=== PATIENT | male | born 1930 | race Caucasian/White ===

== ENCOUNTER 2020-05-03 10:05 | Inpatient (IN) | payer MEDICARE, OTHER ==
[~2020-05-03] VITALS: Ht 172 cm; Wt 110.3 kg
[~2020-05-03 10:05] MED LIST: ACET500L36 PO; ALLP100T PO; AMLO10TA82 PO; DPAS20025 PO; FOLI0.4T2 PO; HCTZ12.5T PO; LOSA100T16 PO; LOVA10TA PO; OMEP-10 PO; PANAX GINSENG PO; SENN1TAB76 PO; TMSL.4C PO; UBID100C17 PO; [UNRECOGNIZED DRUG - REMARK]; [UNRECOGNIZED DRUG - REMARK]
--- NOTE | 2020-05-03 10:45 | NUR ---
WHEN PT IS AWAKE PULSE OX 91-94%. WHEN PT FALLS ASLEEP STAT DROPS TO 88-89% ON ROOM AIR. Addendum: 05/03/20 at 1046 by JACINTO PT DENIES SOA OR KNOWN SLEEP APNEA.
--- NOTE | 2020-05-03 10:57 | NUR ---
PT PULSE OX CONTINUES TO WANT TO DROP TO 88-89% ON OXYGEN. PT DENIES DIZZINESS. ASKED TECH TO GET A EKG .
--- NOTE | 2020-05-03 11:00 | NUR ---
DR WEBBER IN THE ROOM. Addendum: 05/03/20 at 1108 by NSNYDER PT DENIES CHEST PAIN.
[2020-05-03 11:15] LABS: BASOPHILS % (AUTO) 0 % (0-10); EOSINOPHILS % (AUTO) 0 % (0-10); HEMATOCRIT 32 % (40-54); HEMOGLOBIN 10.3 g/dL (13.3-17.7); LYMPHOCYTES # (AUTO) 0.3 10^3/uL (1.0-4.0); LYMPHOCYTES % (AUTO) 6 % (12-44); MEAN CORPUSCULAR HEMOGLOBIN 30 pg (25-34); MEAN CORPUSCULAR HGB CONC 32 g/dL (32-36); MEAN CORPUSCULAR VOLUME 93 fL (80-99); MEAN PLATELET VOLUME 9.2 fL (9.0-12.2); MONOCYTES # (AUTO) 0.6 10^3/uL (0.0-1.0); MONOCYTES % (AUTO) 11 % (0-12); NEUTROPHILS # (AUTO) 4.7 10^3/uL (1.8-7.8); NEUTROPHILS % (AUTO) 82 % (42-75); PLATELET COUNT 200 10^3/uL (130-400); WHITE BLOOD COUNT 5.7 10^3/uL (4.3-11.0)
[2020-05-03 11:19] LABS: ALBUMIN 3.5 GM/DL (3.2-4.5); POTASSIUM 3.8 MMOL/L (3.6-5.0)
[2020-05-03 11:21] LABS: CALCIUM 9.8 MG/DL (8.5-10.1); INR 1.1 (0.8-1.4); PROTHROMBIN TIME PATIENT 14.8 SEC (12.2-14.7)
[2020-05-03 11:22] LABS: TOTAL PROTEIN 6.6 GM/DL (6.4-8.2)
[2020-05-03 11:24] LABS: BILIRUBIN,TOTAL 0.4 MG/DL (0.1-1.0)
[2020-05-03 11:25] LABS: CREATININE SERUM 1.95 MG/DL (0.60-1.30)
--- NOTE | 2020-05-03 11:26 | NUR ---
DR WEBBER CALLED AND TALKED WITH THE PT'S FAMILY.
--- NOTE | 2020-05-03 11:35 | Diagnostic Imaging Report ---
INDICATION: Fall from standing, dizziness, now vomiting. COMPARISON: Chest radiograph compared 10/28/2008 FINDINGS: There is air trapping as a chronic finding noted. Some prominence of the interstitial lung markings, mildly increased in the interim, but this may be on a chronic basis. Some prominence of the central pulmonary vascularity appears similar to the prior. Heart size stable. No pneumothorax. No displaced chest wall fracture deformity. An element of mild volume overload and central venous congestion could not be excluded. IMPRESSION: Findings raise the question of mild central vascular congestion with chronic mild air trapping and likely chronic mild interstitial changes. No acute appearing abnormality. An acute posttraumatic sequelae is not identified. No evidence for pneumonia. Dictated by: Dictated on workstation # [id number]
[2020-05-03 11:41] LABS: BAND NEUTROPHILS 2 %; BASOPHILS % (MANUAL) 0 %; EOSINOPHILS % (MANUAL) 0 %; LYMPHOCYTES % (MANUAL) 6 %; MONOCYTES % (MANUAL) 5 %; NEUTROPHILS % (MANUAL) 87 %
[2020-05-03 11:42] LABS: ELLIPT/OVALOCYTES SLIGHT
--- NOTE | 2020-05-03 12:23 | NUR ---
DR IN ROOM WITH PT AT THIS TIME.
--- NOTE | 2020-05-03 12:25 | ED General ---
General Chief Complaint: Trauma-Non Activation Stated Complaint: FALL Nursing Triage Note: ARRIVED VIA EMS FROM HOME. PT USES A WALKER DUE TO A PREVIOUS STROKE. WAS SHAVING AND TURNED AROUND AND FELL. DENIES HITTING HIS HEAD ET DENIES PAIN. STATES WHEN HIS FAMILY TRIED TO GET HIM UP HE BECAME DIZZY AND VOMITED. PT STATES HE IS ALWAYS DIZZY AND IS NO MORE DIZZY THEN USUAL. A/0 X3. Nursing Sepsis Screen: No Definite Risk Source of Information: Patient Exam Limitations: No Limitations History of Present Illness Date Seen by Provider: May 03, 2020 Time Seen by Provider: 10:59 Initial Comments Here by EMS with report of fall while shaving. Apparently he had turned and fell. Patient denies hitting his head but family states that the way he fell he would likely have hit his head. Patient did not want to come. 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 [facility]s with the [facility]. Apparently after the fall, his family was trying to help him up when he became dizzy and vomited. Patient states that he is always dizzy and this is not different. Denies chest pain or breathing problems. Does note swelling in his legs that is typical and longstanding. Patient does sleep in a recliner. Timing/Duration: 1 Hour Severity: Mild Associated Systoms: No Chest Pain, No Cough, No Fever/Chills, No Headaches; Nausea/Vomiting; No Shortness of Air; Weakness Allergies and Home Medications Allergies Coded Allergies: No Known Drug Allergies (Unverified , 05/02/10) Home Medications Acetaminophen 500 Mg/5 Ml Liquid, 1,000 MG PO HS PRN, (Reported) Allopurinol 100 Mg Tab, 100 MG PO DAILY, (Reported) Amlodipine Besylate 10 Mg Tablet, 1 EACH PO DAILY, (Reported) Dipyridamole/Aspirin 1 Ea Cap, 1 EA PO BID, (Reported) Folic Acid 0.4 Mg Tablet, 1 EACH PO DAILY, (Reported) Hydrochlorothiazide 12.5 Mg Cap, 12.5 MG PO DAILY, (Reported) Losartan Potassium 100 Mg Tablet, 1 EACH PO DAILY, (Reported) Lovastatin 10 Mg Tablet, 1 EACH PO DAILY WITH SUPPER, (Reported) Omeprazole 20 Mg Capsule.dr, 20 MG PO DAILY, (Reported) Senna 1 Ea Tablet, 1 EA PO BID, (Reported) Tamsulosin Hcl 0.4 Mg Cap, 0.4 MG PO DAILY, (Reported) Ubidecarenone 100 Mg Capsule, 100 MG PO DAILY, (Reported) [Panax Ginseng] , 600 MG PO DAILY, (Reported) Patient Home Medication List Home Medication List Reviewed: Yes Review of Systems Review of Systems Constitutional: see HPI; No chills, No fever EENTM: no symptoms reported Respiratory: No cough, No short of breath Cardiovascular: No chest pain; edema Gastrointestinal: No abdominal pain; nausea, vomiting Musculoskeletal: No back pain, No joint pain Skin: No change in color, No dryness Psychiatric/Neurological: Denies Headache; Weakness, Other (Dizziness) All Other Systems Reviewed Negative Unless Noted: Yes Past [place] Hx Past Med/Social Hx: Reviewed Nursing Past Med/Soc Hx Patient Social History Alcohol Use: Denies Use Recreational Drug Use: No Recent Foreign Travel: No Contact w/Someone Who Travel: No Recent Infectious Disease Expo: No Recent Hopitalizations: Yes Past Medical History Surgeries: Yes (ONE KNEE REPLACED 1998 & THE OTHER KNEE IN 2001) Respiratory: No Cardiac: Yes Neurological: Yes Reproductive Disorders: No Sexually Transmitted Disease: No Gastrointestinal: No Musculoskeletal: Yes Endocrine: No Psychosocial: No Blood Disorders: No Family Medical History Reviewed Nursing Family Hx Physical Exam Vital Signs Vital Signs - First Documented 05/03/20 10:05 Temp 37.2 Pulse 61 Resp 16 B/P (MAP) 169/66 (100) Pulse Ox 93 O2 Delivery Room Air Capillary Refill : Less Than 3 Seconds Height, Weight, BMI Height: '" Weight: lbs. oz. kg; 35.00 BMI Method:Stated General Appearance: No Apparent Distress, WD/WN HEENT: PERRL/EOMI, TMs Normal, Pharynx Normal Neck: Full Range of Motion, Normal Inspection, Non Tender, Supple; No Tender Lateral, No Tender Midline Respiratory: Lungs Clear, Normal Breath Sounds Cardiovascular: Regular Rate, Rhythm, No Murmur Gastrointestinal: Non Tender, Soft Back: Normal Inspection, No CVA Tenderness, No Vertebral Tenderness Extremity: Pedal Edema (3+ bilateral lower extremity to the level of knees), Pelvis Stable Neurologic/Psychiatric: Alert, Oriented x3, Normal Mood/Affect Progress/Results/Core Measures Suspected Sepsis Recent Fever Within 48 Hours: No Infection Criteria Present: None New/Unexplained Altered Menta: No Sepsis Screen: No Definite Risk SIRS Temperature: Pulse: 61 Respiratory Rate: 16 Laboratory Tests 05/03/20 10:50: White Blood Count 5.7 Blood Pressure 169 /66 Mean: 100 Laboratory Tests 05/03/20 10:50: Creatinine 1.95H, INR Comment 1.1, Platelet Count 200, Total Bilirubin 0.4 Results/Orders Lab Results Laboratory Tests Test 05/03/20 10:50 05/03/20 10:57 Range/Units White Blood Count 5.7 4.3-11.0 10^3/uL Red Blood Count 3.46 L 4.30-5.52 10^6/uL Hemoglobin 10.3 L 13.3-17.7 g/dL Hematocrit 32 L 40-54 % Mean Corpuscular Volume 93 80-99 fL Mean Corpuscular Hemoglobin 30 25-34 pg Mean Corpuscular Hemoglobin Concent 32 32-36 g/dL Red Cell Distribution Width 13.8 10.0-14.5 % Platelet Count 200 130-400 10^3/uL Mean Platelet Volume 9.2 9.0-12.2 fL Immature Granulocyte % (Auto) 0 % Neutrophils (%) (Auto) 82 H 42-75 % Lymphocytes (%) (Auto) 6 L 12-44 % Monocytes (%) (Auto) 11 0-12 % Eosinophils (%) (Auto) 0 0-10 % Basophils (%) (Auto) 0 0-10 % Neutrophils # (Auto) 4.7 1.8-7.8 10^3/uL Lymphocytes # (Auto) 0.3 L 1.0-4.0 10^3/uL Monocytes # (Auto) 0.6 0.0-1.0 10^3/uL Eosinophils # (Auto) 0.0 0.0-0.3 10^3/uL Basophils # (Auto) 0.0 0.0-0.1 10^3/uL Immature Granulocyte # (Auto) 0.0 0.0-0.1 10^3/uL Neutrophils % (Manual) 87 % Lymphocytes % (Manual) 6 % Monocytes % (Manual) 5 % Eosinophils % (Manual) 0 % Basophils % (Manual) 0 % Band Neutrophils 2 % Elliptocytes SLIGHT Prothrombin Time 14.8 H 12.2-14.7 SEC INR Comment 1.1 0.8-1.4 Activated Partial Thromboplast Time 38 H 24-35 SEC D-Dimer 1.52 H 0.00-0.49 UG/ML Sodium Level 139 135-145 MMOL/L Potassium Level 3.8 3.6-5.0 MMOL/L Chloride Level 110 H 98-107 MMOL/L Carbon Dioxide Level 19 L 21-32 MMOL/L Anion Gap 10 5-14 MMOL/L Blood Urea Nitrogen 30 H 7-18 MG/DL Creatinine 1.95 H 0.60-1.30 MG/DL Estimat Glomerular Filtration Rate 33 BUN/Creatinine Ratio 15 Glucose Level 141 H 70-105 MG/DL Calcium Level 9.8 8.5-10.1 MG/DL Corrected Calcium 10.2 H 8.5-10.1 MG/DL Magnesium Level 2.0 1.6-2.4 MG/DL Total Bilirubin 0.4 0.1-1.0 MG/DL Aspartate Amino Transf (AST/SGOT) 20 5-34 U/L Alanine Aminotransferase (ALT/SGPT) 13 0-55 U/L Alkaline Phosphatase 52 40-136 U/L Myoglobin 1092.1 H 10.0-92.0 NG/ML Troponin I 0.488 *H <0.028 NG/ML B-Type Natriuretic Peptide 236.0 H <100.0 PG/ML Total Protein 6.6 6.4-8.2 GM/DL Albumin 3.5 3.2-4.5 GM/DL Coronavirus 2019 ([facility]) Negative Negative My Orders Orders - JOE WEBBER MD Cbc With Automated Diff (05/03/20 11:03) Magnesium (05/03/20 11:03) Chest 1 View, Ap/Pa Only (05/03/20 11:03) Ekg Tracing (05/03/20 11:03) Comprehensive Metabolic Panel (05/03/20 11:03) Myoglobin Serum (05/03/20 11:03) Protime With Inr (05/03/20 11:03) Partial Thromboplastin Time (05/03/20 11:03) O2 (05/03/20 11:03) Monitor-Rhythm Ecg Trace Only (05/03/20 11:03) Lipid Panel (05/04/20 06:00) Ed Iv/Invasive Line Start (05/03/20 11:03) BNP (05/03/20 11:03) Fibrin Degradation Products (05/03/20 11:03) Troponin I (05/03/20 11:03) Echo W Doppler/Color Flow (05/03/20 11:09) Ct Head/Cervical Spine Wo (05/03/20 11:13) Manual Differential (05/03/20 10:50) Covid 19 Inhouse Test (05/03/20 11:54) Enoxaparin Injection (Lovenox Injection) (05/03/20 12:45) Medications Given in ED Current Medications Medications Dose Ordered Sig/David Route Start Time Stop Time Status Last Admin Dose Admin Enoxaparin Sodium 100 mg ONCE ONCE SC 05/03/20 12:45 05/03/20 12:46 DC 05/03/20 12:50 100 MG Vital Signs/I&O 05/03/20 10:05 Temp 37.2 Pulse 61 Resp 16 B/P (MAP) 169/66 (100) Pulse Ox 93 O2 Delivery Room Air Capillary Refill : Less Than 3 Seconds Blood Pressure Mean: 100 Progress Note : Progress Note Seen and evaluated on finding of abnormal EKG. Patient is here with out chest pain and with complaint of fall and dizziness. Noted to be mildly hypoxic in nurse place patient on oxygen. He is not normally on oxygen. This precipitated the EKG. EKG does show abnormal findings and is read as acute IN by machine. On review of the EKG with Dr. Bob at 1106, it is felt that this is likely left bundle branch block variant. Patient reports that he has had some history of left bundle branch block although not noted here previously. This does represent a change from the EKG in 2009 when he had a stroke but he has not had any further work-up here. Given these findings and that he is without chest pain, we will initiate chest pain work-up and evaluate for troponin bump. We will also get CT of the head and C-spine as patient is on Aggrenox and after speaking with patient's daughter, it is very likely that the patient hit his head. 1152: I did review results of troponin and myoglobin with Dr. Bob. Patient is likely a non-STEMI in that he is not having chest pain. He is requesting Lovenox dose now and he will see the patient in the ED likely. Also request Covid 19 rapid test evaluation. 1237: I have discussed the case with Dr. Wilson who will accept the patient for admission to the stepdown unit. We have requested 2D cardiac echo today. CT does not show any acute intracranial findings. Patient is without pain in his neck. Lovenox 100 mg subcu ordered. Patient was informed about possible heart catheterization tomorrow and he is agreeable. COVID-19 evaluation negative. Admit to cardiac stepdown. Patient agrees with plan. ECG Initial ECG Impression Date: May 03, 2020 Initial ECG Impression Time: 10:59 Initial ECG Rate: 58 Comment Sinus rhythm with left bundle branch block. Question of ST elevation in the lateral leads. Extreme right axis deviation. Change from previous in 2009. Reviewed with commercial lines assistant Diagnostic Imaging Diagonstic Imaging: Xray Plain Films/CT/US/NM/MRI: chest Comments [email or web address] [place], [place] NAME: DINESH MARIN [facility] REC#: [id number] PT STATUS: REG ER : 1930 PHYSICIAN: JOE WEBBER MD ADMIT DATE: 05/03/20/ER Draft Date of Exam:05/03/20 CHEST 1 VIEW, AP/PA ONLY INDICATION: Fall from standing, dizziness, now vomiting. COMPARISON: Chest radiograph compared 10/28/2008 FINDINGS: There is air trapping as a chronic finding noted. Some prominence of the interstitial lung markings, mildly increased in the interim, but this may be on a chronic basis. Some prominence of the central pulmonary vascularity appears similar to the prior. Heart size stable. No pneumothorax. No displaced chest wall fracture deformity. An element of mild volume overload and central venous congestion could not be excluded. IMPRESSION: Findings raise the question of mild central vascular congestion with chronic mild air trapping and likely chronic mild interstitial changes. No acute appearing abnormality. An acute posttraumatic sequelae is not identified. No evidence for pneumonia. Dictated on workstation # [id number] Dict: 05/03/20 1117 Trans: 05/03/20 1135 [facility]B [id number] Interpreted by: RAHUL MONTAÑO Electronically signed by: Diagonstic Imaging: CT Plain Films/CT/US/NM/MRI: c-spine, head Comments [facility] [place] [place] NAME: DINESH MARIN [facility] REC#: [id number] PT STATUS: REG ER : 1930 PHYSICIAN: JOE WEBBER MD ADMIT DATE: 05/03/20/ER Draft Date of Exam:05/03/20 CT HEAD/CERVICAL SPINE WO PROCEDURE: CT head and CT cervical spine without contrast, 05/03/2020. TECHNIQUE: Multiple contiguous axial images were obtained through the brain and cervical spine without the use of intravenous contrast. Sagittal and coronal reformations through the cervical spine were then performed. Auto Exposure Controls were utilized during the CT exam to meet ALARA standards for radiation dose reduction. INDICATION: Fall, dizziness, previous stroke. CORRELATION made to CT brain from 05/03/2010 CT HEAD: There is diffuse chronic ischemic disease in a periventricular and deep white matter distribution. Atrophy is also seen. There is no acute hemorrhage or infarct. No mass, mass effect or midline shift appreciated. The calvarium is intact. Chronic change noted within the visualized sinuses. IMPRESSION: 1. No acute intracranial process with chronic findings as above. CT CERVICAL SPINE: There is grade 1 anterolisthesis at C6-C7 and C7-T1. These findings are likely chronic given facet hypertrophy throughout the spine. Clinical exclusion of a ligamentous injury however recommended. No acute fractures are seen. Vertebral body heights are maintained. Multilevel diffuse facet hypertrophy noted with multilevel spur disc complexes also present. Prevertebral soft tissues unremarkable. Visualized lung apices clear. IMPRESSION 1. Multilevel diffuse chronic disease as above with mild subluxation at C6-C7 and C7-T1 most likely on the basis of degenerative disease however clinical exclusion of ligamentous injury recommended. 2. Not mentioned above, there is a prominent hyperdensity along the posterior border at C3-C4 most likely due to a prominent spur disc complex. A tiny epidural hematoma felt to be much less likely but MRI could further characterize and exclude such a process depending on patient's symptoms. Dictated on workstation # [id number] Dict: 05/03/20 1150 Trans: 05/03/20 1225 [facility] [id number] Interpreted by: NAHID ENGLISH MD Electronically signed by: Departure Communication (Admissions) Time/Spoke to Admitting Phy: 11:52 Time/Spoke to Consulting Phy: 11:56 Impression Primary Impression: Non-ST elevation IN (NSTEMI) Additional Impressions: Elevated troponin Weakness Dizziness Disposition: 09 ADMITTED INPATIENT Condition: Stable Admissions Decision to Admit Reason: Admit from ER (General) Decision to Admit/Date: May 03, 2020 Time/Decision to Admit Time: 11:52 Departure-Patient Inst. Referrals: NO,LOCAL PHYSICIAN (PCP/Family) Primary Care Physician JOE WEBBER MD May 03, 2020 12:24
[2020-05-03] MEDS ORDERED: ENOXAPARIN 100 MG/1 ML (LOVENOX) SYR SC ONE (12:45)
--- NOTE | 2020-05-03 13:30 | NUR ---
DINESH MARIN admitted to room 507-1, with an admitting diagnosis of STEMI, on 05/03/20 from ED via [facility], accompanied by STAFF.DINESH MARIN introduced to surroundings, call light, bed controls, phone, TV, temperature control, lights, meal times, smoking policy, visitor policy, side rail policy, bathrooms and showers. Patient Rights given to patient in the handbook.DINESH MARIN verbalizes understanding that [facility] is not responsible for the loss or damage to any personal effects or valuables that are kept in the patients posession during their hospitalization.
[2020-05-03] MEDS ORDERED: ONDANSETRON 4 MG/2 ML (SDV) Z0FRAN IV PRN (13:45)
[2020-05-03] MEDS ORDERED: CLOPIDOGREL 300 MG (PLAVIX) TABLET PO ONE (14:00)
[2020-05-03] MEDS ORDERED: NITROGLYCERIN 0.4 MG SL TABS BTL 25'S SL PRN (14:00)
[2020-05-03] MEDS: ASPIRIN E.C. 81 MG (ECOTRIN) TAB PO SCH (14:56)
--- NOTE | 2020-05-03 15:00 | NUR ---
DR LEYVA NOTIFIED OF PTS CRITICAL TROPONIN LEVEL OF 8.53. DR REPORTED TO PT WILL HAVE CATH IN AM. THIS RN ATTEMPTED TO CALL PTS DAUGHTER, RICKY, UNSUCCESSFULLY. I LEFT A MESSAGE FOR HER TO CALL ME AT .
--- NOTE | 2020-05-03 15:30 | Consultation-Cardiology ---
HPI-Cardiology Cardiology Consultation: Date of Consultation 05/03/20 Date of Admission Attending Physician Radha Wilson MD Admitting Physician No,Local Physician Consulting Physician Kae BOB MD HPI: Time Seen by a Provider: 13:30 Chief Complaint: Fall This is a 89-year-old gentleman with history of stroke 10 years ago for which he takes Aggrenox. Denies any cardiac complaints. Does not smoke. No history of diabetes. He presents with history of fall with possible dizziness. In the ER he was noted to be mildly hypoxic therefore was started on oxygen. Patient denied any chest pain or shortness of breath. I personally asked him numerous times to whether he has even mild chest discomfort but he denies. He tells me that he did not even want to come to the hospital but his family recommended. EKG shows atypical left bundle branch block. Initial troponin is 0.488. Mildly elevated BNP and creatinine of 1.95. Patient is very comfortable sitting in the bed. Review of Systems-Cardiology Review of Systems Constitutional: As described under HPI; No As described under HPI, No no symptoms reported, No chills, No fever, No lightheadedness Eyes: No As described under HPI, No no symptoms reported, No blindness, No blurred vision, No contact lenses, No drainage, No decreased acuity, No foreign body sensation, No pain, No vision change Ears/Nose/Throat: No As described under HPI, No no symptoms reported, No chronic hearing loss, No ear discharge, No ear pain, No nasal drainage, No ulcerations Respiratory: No no symptoms reported; As described under HPI; No As described under HPI, No cough, No orthopnea, No shortness of breath, No SOB with excertion Cardiovascular: No no symptoms reported; As described under HPI; No As described under HPI, No chest pain, No edema, No irregular heart rate, No lightheadedness, No palpitations Gastrointestinal: No no symptoms reported, No As described under HPI, No abdomen distended, No abdominal pain, No blood streaked bowels, No constipation, No diarrhea, No nausea, No vomiting, No stool coloration changes Genitourinary: No As described under HPI, No burning, No dysuria, No discharge, No frequency, No flank pain, No hematuria, No urgency Skin: No rash, No skin related problems, No ulcerations Psychiatric/Neurological: No anxiety, No depression, No seizure, No focal weakness, No syncope Hematologic: No bleeding abnormalities All Other Systems Reviewed Negative Unless Noted: Yes [id number] Hx Patient Social History Alcohol Use: Denies Use Recreational Drug Use: No Recent Foreign Travel: No Recent Infectious Disease Expo: No Past Medical History PMH As described under Assessment. Allergies and Home Medications Allergies Coded Allergies: No Known Drug Allergies (Unverified , 05/02/10) Home Medications Acetaminophen 500 Mg/5 Ml Liquid, 1,000 MG PO HS PRN, (Reported) Allopurinol 100 Mg Tab, 100 MG PO DAILY, (Reported) Amlodipine Besylate 10 Mg Tablet, 1 EACH PO DAILY, (Reported) Dipyridamole/Aspirin 1 Ea Cap, 1 EA PO BID, (Reported) Folic Acid 0.4 Mg Tablet, 1 EACH PO DAILY, (Reported) Hydrochlorothiazide 12.5 Mg Cap, 12.5 MG PO DAILY, (Reported) Losartan Potassium 100 Mg Tablet, 1 EACH PO DAILY, (Reported) Lovastatin 10 Mg Tablet, 1 EACH PO DAILY WITH SUPPER, (Reported) Omeprazole 20 Mg Capsule.dr, 20 MG PO DAILY, (Reported) Senna 1 Ea Tablet, 1 EA PO BID, (Reported) Tamsulosin Hcl 0.4 Mg Cap, 0.4 MG PO DAILY, (Reported) Ubidecarenone 100 Mg Capsule, 100 MG PO DAILY, (Reported) [Panax Ginseng] , 600 MG PO DAILY, (Reported) Patient Home Medication List Home Medication List Reviewed: Yes Physical Exam-Cardiology Physical Exam Vital Signs/I&O 05/03/20 05/03/20 05/03/20 05/03/20 10:05 10:45 13:15 13:33 Temp 37.2 Pulse 61 59 54 Resp 16 20 26 B/P (MAP) 169/66 (100) 172/77 150/72 Pulse Ox 93 89 93 96 O2 Delivery Room Air Nasal Cannula Nasal Cannula Nasal Cannula O2 Flow Rate 4.00 3.00 5.00 Capillary Refill : Less Than 3 Seconds Constitutional: appears stated age, AAO x 3; No apparent distress; well- developed, well-nourished HEENT: PERRL; No discharge; hearing is well preserved, oral hygience is good; No ulceration, No xanthelasmas are seen Neck: No carotid bruit; carotid pulses are 2 + bilaterally Respiratory: chest is bilaterally symmetric, lungs clear to auscultation Cardiovascular: regular rate-rhythm, S1 and S2; No diastolic murmur, No systolic murmur Gastrointestinal: soft, audible bowel sounds; No spleenomegaly Rectal: deferred Extremities: normal range of motion, non-tender, normal inspection; No clubbing, No cyanosis; no lower extremity edema bilateral; No significant edema Neurologic/Psychiatric: no motor/sensory deficits, alert, normal mood/affect, oriented x 3, power is 5/5 both on sides Skin: normal color, warm/dry; No rash, No ulcerations Data Review Labs Laboratory Tests 05/03/20 10:50: White Blood Count 5.7, Red Blood Count 3.46L, Hemoglobin 10.3L, Hematocrit 32L, Mean Corpuscular Volume 93, Mean Corpuscular Hemoglobin 30, Mean Corpuscular Hemoglobin Concent 32, Red Cell Distribution Width 13.8, Platelet Count 200, Mean Platelet Volume 9.2, Immature Granulocyte % (Auto) 0, Neutrophils (%) (Auto) 82H, Lymphocytes (%) (Auto) 6L, Monocytes (%) (Auto) 11, Eosinophils (%) (Auto) 0, Basophils (%) (Auto) 0, Neutrophils # (Auto) 4.7, Lymphocytes # (Auto) 0.3L, Monocytes # (Auto) 0.6, Eosinophils # (Auto) 0.0, Basophils # (Auto) 0.0, Immature Granulocyte # (Auto) 0.0, Neutrophils % (Manual) 87, Lymphocytes % (Manual) 6, Monocytes % (Manual) 5, Eosinophils % (Manual) 0, Basophils % (Manual) 0, Band Neutrophils 2, Elliptocytes SLIGHT, Prothrombin Time 14.8H, INR Comment 1.1, Activated Partial Thromboplast Time 38H, D-Dimer 1.52H, Sodium Level 139, Potassium Level 3.8, Chloride Level 110H, Carbon Dioxide Level 19L, Anion Gap 10, Blood Urea Nitrogen 30H, Creatinine 1.95H, Estimat Glomerular Filtration Rate 33, BUN/Creatinine Ratio 15, Glucose Level 141H, Calcium Level 9.8, Corrected Calcium 10.2H, Magnesium Level 2.0, Total Bilirubin 0.4, Aspartate Amino Transf (AST/SGOT) 20, Alanine Aminotransferase (ALT/SGPT) 13, Alkaline Phosphatase 52, Myoglobin 1092.1H, Troponin I 0.488*H, B-Type Natriuretic Peptide 236.0H, Total Protein 6.6, Albumin 3.5 05/03/20 10:57: Coronavirus 2019 ([facility]) Negative 05/03/20 14:09: Troponin I 8.536*H ECG Impression ECG Initial ECG Rhythm: Normal Sinus Comment Atypical left bundle branch block. A/P-Cardiology Assessment/Admission Diagnosis Non-STEMI, Acute congestive heart failure, Possible epidural hematoma, Acute kidney injury, Mechanical fall, Previous history of stroke Plan Non-STEMI, positive troponin. Patient does not have any chest pain. According to the patient he never had chest pain even recently. I asked him numerous times. He denied any shortness of breath as well. EKG shows atypical left bundle branch block. Repeat troponin. If troponin trends up, working diagnosis will likely be a non-STEMI and will require coronary angiography. I discussed with him about the possibility of performing coronary angiography today however he told me that he wanted to wait and see what the serial troponins will be, before he decides on coronary angiography. I did discuss with him that the working diagnosis is myocardial infarction and there is a possibility of a blocked artery. He understands the risks and tells me that he is "ready to ". Since the patient was not having any chest pain at all, acute kidney injury, advanced age, I did not push him a lot and agreed to serial troponins and echocardiogram. Aspirin and Lovenox was given by Dr. Harrington in the ER. I will give him bolus of Plavix 300 mg. Likely coronary angiography tomorrow. Acute congestive heart failure, mildly elevated BNP. Patient had mild hypoxia and was put on oxygen. We will request an echocardiogram. Possible epidural hematoma, CT head/spine suggests a possibility of tiny epidural hematoma. I will defer to the primary team. Acute kidney injury, defer to the primary team. Increased risk of worsening kidney function with coronary angiography. Mechanical fall, defer to the primary team. Previous history of stroke, continue aspirin. Thank you for your consultation. Please call me if you have any questions. Juan Jose Bob MD, FACP, FACC, FSCAI, FHRS, CCDS Interventional Cardiology Cardiac Electrophysiology Vascular Medicine and Endovascular Interventions Clinical Quality Measures DVT/VTE Risk/Contraindication: Risk Factor Score Per Nursin RFS Level Per Nursing on Admit: 4+=Very High Kae BOB MD May 03, 2020 15:30
--- NOTE | 2020-05-03 18:00 | NUR ---
THIS RN CALLED , JEISON, BY PTS REQUEST. JEISON ASKED THAT I SPEAK TO [facility] WHO WAS VISITING. THIS RN SPOKE WITH THEM FOR ABOUT 15 MINUTES. THEY WERE CONCERNED ABOUT PT AND STATUS. THEY WERE NOTIFIED BY THIS RN WITH PTS REQUEST ABOUT CATH. THIS RN FILLED OUT ADD ON AND PT SIGNED CONSENT AND PUT IN CHART. M[facility], FAXED ADD ON.
[2020-05-03] MEDS ORDERED: HYDR-3924 PO (18:14)
[2020-05-03] MEDS ORDERED: L.AC1CAP6 PO (18:15)
[2020-05-03] MEDS ORDERED: CHOL20003 PO (18:15)
[2020-05-03] MEDS ORDERED: SIMV20TA26 PO (18:16)
[2020-05-03] MEDS ORDERED: FERR-84 PO (18:16)
[2020-05-04 03:47] LABS: TRIGLYCERIDES 82 MG/DL (<150); VLDL CHOLESTEROL 16 MG/DL (5-40)
[2020-05-04 03:52] LABS: CHOLESTEROL 100 MG/DL (< 200)
[2020-05-04 03:53] LABS: HDL CHOLESTEROL 29 MG/DL (40-60)
[2020-05-04] MEDS ORDERED: LIDOCAINE 1% INJ 20 ML 20 ML VIAL ONE (06:38)
[2020-05-04] MEDS ORDERED: HEParin (CATH LAB) 2,000 ML IV ONE (06:38)
[2020-05-04] MEDS: ASPIRIN E.C. 81 MG (ECOTRIN) TAB PO SCH (07:12)
[2020-05-04 08:21] LABS: CALCIUM 9.6 MG/DL (8.5-10.1); CREATININE SERUM 1.93 MG/DL (0.60-1.30)
[2020-05-04] MEDS: NS IV 1000 ML 1,000 ML IV SCH ×5 (08:22→21:14)
--- NOTE | 2020-05-04 08:32 | NUR ---
RN OLGA FAYE ALERTED ME THAT TROPONIN WAS CRITICAL AT 16.678. WE BOTH WENT TO CHECK ON HIM AND HE WAS TALKING TO BUSINESS SOLUTIONS ANALYST, YAKELIN, AND WAS NOT IN DISTRESS. HE DENIED CHEST PAIN AND WAS IN BED RELAXED.
--- NOTE | 2020-05-04 08:34 | NUR ---
DR LEYVA NOTIFIED OF CRITICAL TROPONIN LEVEL OF 16.687 BY THIS RN. PT SCHEDULED FOR CATH AT 0915 AND IN HOUSE COUNSEL RNS ARE SCHEDULED TP COME UP TO GET HIM AT 0845.
[2020-05-04] MEDS ORDERED: fentaNYL INJECTION 100 MCG/2 ML AMP ONE (08:36)
[2020-05-04] MEDS ORDERED: MIDAZOLAM 5 MG/5 ML (VERSED) VIAL ONE (08:36)
--- NOTE | 2020-05-04 08:50 | NUR ---
[facility] [employer] NURSES CAME TO GET PT AND TOOK HIM DOWN TO [facility] [employer] [facility] VIA BED. PT COMFORTABLE, AWAKE AND NO C/O CHEST PAIN
[2020-05-04] MEDS ORDERED: VERAPAMIL 5 MG/2 ML (CALAN) VIAL IV ONE (08:57)
[2020-05-04] MEDS ORDERED: HEParin 1000 UNIT/ML (10ML VIAL) FOR BOLUS ONE (08:58)
[2020-05-04] MEDS ORDERED: NITRO DRIP 25000 MCG/D5W 250 ML IV ONE (08:58)
--- NOTE | 2020-05-04 09:31 | NUR ---
Chlorination Operator referral for prayer before heart cath. 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 He engaged in sharing several stories about his father and his own years in the service. 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 Pt is [employer] and a member of [employer] in [place], [place]. Pt lives at home with his . The pt's daughter, Sangita, and granddaughter Alexia, both work at [employer] and provide support by assisting with transportation, making house visits and calling the house routinely. This keg filler remained with the pt until he was taken to his heart cath. He states he does not have pain and reports no shortness of breath.
[2020-05-04] MEDS ORDERED: CLOPIDOGREL 300 MG (PLAVIX) TABLET PO ONE (09:45)
[2020-05-04] MEDS ORDERED: NS IV 1000 ML 1,000 ML ONE (09:50)
--- NOTE | 2020-05-04 10:34 | Cardiac Procedure Note-CS/ASA ---
Pre-Procedure Note Pre-Op Procedure Note H&P Reviewed The H&P was reviewed, patient examined and no changes noted. Date H&P Reviewed: May 04, 2020 Time H&P Reviewed: 09:15 Conscious Sedation Pre-Proced Time 09:15 ASA Score 3 For ASA 3 and 4: Consider anesthesia and medical clearance. Also, for patients with a history of failed moderate sedation consider anesthesia. Airway Lungs Heart ASA score ASA 1: a normal healthy patient ASA 2: a patient with a mild systemic disease (mid diabetes, controlled hypertension, obesity ASA 3: a patient with a severe systemic disease that limits activity (angina, COPD, prior Myocardial infarction) ASA 4: a patient with an incapacitating disease that is a constant threat to life (CHF, renal failure) ASA 5: a moribund patient not expected to survive 24 hrs. (ruptured aneurysm) ASA 6: a declared brain- patient whose organs are being harvested. For emergent operations, add the letter E after the classification Mallampati Classification Grade 1 Sedation Plan Analgesia, Amnesia, Plan communicated to team members, Discussed options with patient/fam, Discussed risks with patient/fam The patient is an appropriate candidate to undergo the planned procedure, sedation, and anesthesia. The patient immediately re-assessed prior to indication. Kae LEYVA MD May 04, 2020 10:34
--- NOTE | 2020-05-04 10:34 | Cardiology Progress Note ---
Cardiology SOAP Progress Note Subjective: no chest pain Objective: I&O/Vital Signs 05/05/20 05/05/20 05/05/20 05/05/20 06:47 08:00 08:09 09:00 Temp 36.4 Pulse 52 57 Resp 20 B/P (MAP) 184/79 Pulse Ox 95 O2 Delivery Nasal Cannula Nasal Cannula Nasal Cannula O2 Flow Rate 3.00 3.00 3.00 05/05/20 05/05/20 05/05/20 05/05/20 11:22 11:45 12:00 12:45 Temp 36.3 Pulse 54 61 Resp 20 B/P (MAP) 182/72 Pulse Ox 96 O2 Delivery Nasal Cannula Nasal Cannula Nasal Cannula O2 Flow Rate 3.00 3.00 3.00 05/05/20 15:44 Temp 36.4 Pulse 54 Resp 22 B/P (MAP) 163/72 Pulse Ox 97 O2 Delivery Nasal Cannula O2 Flow Rate 3.00 05/05/20 00:00 Intake Total 1090 ml Output Total 1300 ml Balance -210 ml Constitutional: appears stated age, AAO x 3; No apparent distress; well- developed, well-nourished Respiratory: chest is bilaterally symmetric, lungs clear to auscultation Cardiovascular: regular rate-rhythm, S1 and S2; No diastolic murmur, No systolic murmur Gastrointestional: soft, audible bowel sounds; No spleenomegaly Extremities: normal range of motion, non-tender, normal inspection; No clubbing, No cyanosis; no lower extremity edema bilateral; No significant edema Neurologic/Psychiatric: no motor/sensory deficits, alert, normal mood/affect, oriented x 3, power is 5/5 both on sides Skin: normal color, warm/dry; No rash, No ulcerations Results/Procedures: Labs Laboratory Tests 05/05/20 05:26: White Blood Count 4.8, Red Blood Count 3.12L, Hemoglobin 9.4L, Hematocrit 29L, Mean Corpuscular Volume 94, Mean Corpuscular Hemoglobin 30, Mean Corpuscular Hemoglobin Concent 32, Red Cell Distribution Width 13.7, Platelet Count 177, Mean Platelet Volume 9.3, Sodium Level 135, Potassium Level 4.0, Chloride Level 108H, Carbon Dioxide Level 18L, Anion Gap 9, Blood Urea Nitrogen 31H, Creatinine 1.70H, Estimat Glomerular Filtration Rate 38, BUN/Creatinine Ratio 18, Glucose Level 100, Calcium Level 8.7 A/P: Assessment/Dx: Non-STEMI, Acute congestive heart failure, Possible epidural hematoma, Acute kidney injury, Mechanical fall, Previous history of stroke Plan: Non-STEMI, positive troponin. Patient does not have any chest pain. According to the patient he never had chest pain even recently. I asked him numerous times. He denied any shortness of breath as well. EKG shows atypical left bundle branch block. Coronary angiography and possible intervention today. Acute congestive heart failure, mildly elevated BNP. Patient had mild hypoxia and was put on oxygen. We will request an echocardiogram. Acute kidney injury, defer to the primary team. Increased risk of worsening kidney function with coronary angiography. Mechanical fall, defer to the primary team. Previous history of stroke, continue aspirin. Thank you for your consultation. Please call me if you have any questions. Juan Jose Bob MD, FACP, FACC, FSCAI, FHRS, CCDS Interventional Cardiology Cardiac Electrophysiology Vascular Medicine and Endovascular Interventions Kae BOB MD May 04, 2020 10:34
--- NOTE | 2020-05-04 10:35 | Coronary Angiography & PCI ---
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 EKG shows left bundle branch block. No chest pain. Significantly positive troponin. Working diagnosis of non-STEMI. Acute kidney injury. Therefore, the patient was scheduled for coronary angiography. PROCEDURES PERFORMED: 1.Coronary angiography. 2.Left heart catheterization. 3.PCI to the left circumflex artery with drug-eluting stent. COMPLICATIONS: None. SPECIMENS: None. ESTIMATED BLOOD LOSS: 10 mL ANESTHESIA: Conscious sedation ANTICOAGULATION: IV heparin CONTRAST: 61 mL. FLUOROSCOPY: FLOUROSCOPY DOSE: [id number] mgy. PROCEDURE DETAILS: The patient is a 89 male and was brought to the trestle mainternance laborer after informed consent was taken. All the risks and complications were explained in detail; this included the risk of bleeding, vascular damage, stroke, MT and even . The patient was draped and prepped in the usual sterile fashion. Access was gained in the right radial artery with a 6 Romanian sheath. Coronary angiography and left heart catheterization was performed with the Macfarlan catheter. FINDINGS: 1.Left main: Patent. 2.LAD: Tortuous LAD with moderate mid disease. 3.Left circumflex artery: Severe mid left circumflex artery stenosis. 4.RCA: Mild to moderate diffuse disease. Moderate stenosis in the distal RCA. 5.Left heart catheterization: LV pressure 156/11 mmHg, LVEDP 18 mmHg. Aortic pressure 128/49 mmHg. LV gram not done due to acute kidney injury. RECOMMENDATIONS: PCI to the left circumflex artery is recommended. INTERVENTION DETAILS: JL4 guide catheter, whisper extra-support guidewire, IV heparin. Plavix 300 mg given before the PCI. We placed a BMW wire in the proximal left circumflex artery. The lesion was crossed with the whisper wire. We then took a science Mallorie 3 x 23 mm stent but were not able to get to the lesion. Therefore we took the stent out and the BMW wire out. We took another whisper extra-support wire and crossed the lesion and placed it in the distal OM1 artery. Predilatation was done with an emerge 2.5 x 20 mm balloon at 16 juvenal for 46 seconds We were then able to advance the drug-eluting stent to the lesion. Was deployed at 16 juvenal for 31 seconds. Excellent post angiographic results with ZOIE 3 flow and no residual stenosis. Mild to moderate proximal disease left alone. Patient tolerated procedure well and did not have any complication. He left the catheter lab to the recovery area with stable hemodynamics. CONCLUSIONS: 1. Severe left circumflex artery stenosis treated successfully with one drug- eluting stent. 2. Dual antiplatelet therapy. Aggressive secondary prevention measures. 3. Mild aortic stenosis. 4. IV fluids for acute kidney injury. Juan Jose Bob MD, FACP, FACC, [facility] Interventional Cardiology Kae BOB MD May 04, 2020 10:35
--- NOTE | 2020-05-04 10:40 | NUR ---
PT CAME BACK TO CSD UNIT WITH WAREHOUSE STOCKER RNS AT 1040. PT HAD A STENT PLACED IN CIRCUMFLEX ARTERY. PTS V/S STABLE. PT IS AWAKE AND ALERT AND ASKING FOR WATER AND TV SHOWS. NO DISTRESS OR PAIN PER PT
[2020-05-04] MEDS ORDERED: PATIENT MAY USE OWN MEDS, ALL PO SCH (10:45)
--- NOTE | 2020-05-04 12:22 | Progress Note ---
Subjective Subjective Time Seen by Provider: 07:45 All Other Systems Reviewed All Other Systems Reviewed: Yes Objective Exam Vital Signs Vital Signs - First Documented 05/03/20 05/03/20 10:05 10:45 Temp 37.2 Pulse 61 Resp 16 B/P (MAP) 169/66 (100) Pulse Ox 93 O2 Delivery Room Air O2 Flow Rate 4.00 Capillary Refill : Less Than 3 SecondsLess Than 3 Seconds General Appearance: No Apparent Distress, WD/WN HEENT: PERRL/EOMI, TMs Normal, Pharynx Normal Neck: Full Range of Motion, Normal Inspection, Non Tender, Supple; No Tender Lateral, No Tender Midline Respiratory: Lungs Clear, Normal Breath Sounds Cardiovascular: Regular Rate, Rhythm, No Murmur Gastrointestinal: Non Tender, Soft Back: Normal Inspection, No CVA Tenderness, No Vertebral Tenderness Extremity: Pedal Edema (3+ bilateral lower extremity to the level of knees), Pelvis Stable Neurologic/Psychiatric: Alert, Oriented x3, Normal Mood/Affect Results Lab Laboratory Tests 05/03/20 14:09: Troponin I 8.536*H 05/04/20 02:56: Troponin I 16.687*H, Sodium Level 138, Potassium Level 4.0, Chloride Level 108H, Carbon Dioxide Level 19L, Anion Gap 11, Blood Urea Nitrogen 33H, Creatinine 1.93H, Estimat Glomerular Filtration Rate 33, BUN/Creatinine Ratio 17, Glucose Level 114H, Calcium Level 9.6, Triglycerides Level 82, Cholesterol Level 100, LDL Cholesterol Direct 58, VLDL Cholesterol 16, HDL Cholesterol 29L Clinical Quality Measures DVT/VTE Risk/Contraindication: Risk Factor Score Per Nursin RFS Level Per Nursing on Admit: 4+=Very High RUPERT MAHARAJ MED STUDENT May 04, 2020 12:22
--- NOTE | 2020-05-04 12:36 | History & Physical ---
RUPERT MAHARAJ MED STUDENT 05/04/20 1236: History of Present Illness History of Present Illness Reason for visit/HPI 89y/o M presents with CC of syncope/fall on 05/03 to ER, EKG performed showed new LBBB and elevated troponin and myoglobin. Pts serial troponin level continued to rise and pt was taken to laborer operator by Dr. Bob this morning, pt received LCX artery stent. Pt was fully alert and oriented apon visit this morning. Pt denies any recent hx of syncope or falls, per family pt had nausea and vomited yesterday following the fall, but when I spoke with the pt he stated it was no different then his normal nausea level. Pt denies any chest pain. Pt was mildly hypoxic at ER admission and was put on nasal cannula at 3LPM. Pt VS are stable this morning, though pt has bradycardia in the 40s. ER ordered Head/neck CT and CXR, these showed no acute etiologies related to the fall. Pt denies any other complaints at this time. Date of Admission May 03, 2020 at 11:59 Time Seen by a Provider: 07:45 I consulted on this patient on 05/04/20 12:24 Attending Physician Charo Mullins MD Admitting Physician Ana Maria,Local Physician Consult Allergies and Home Medications Allergies Coded Allergies: No Known Drug Allergies (Unverified , 05/02/10) Home Medications Allopurinol 100 Mg Tablet, 100 MG PO DAILY, (Reported) Aspirin 81 Mg Tablet.dr 81 MG PO DAILY Prescribed by: CHARO MULLINS on 05/06/20 142 Atorvastatin Calcium 80 Mg Tablet, 80 MG PO HS Prescribed by: CHARO MULLINS on 05/06/20 142 Cholecalciferol (Vitamin D3) 50 Mcg Capsule, 50 MCG PO DAILY, (Reported) Clopidogrel Bisulfate 75 Mg Tablet, 75 MG PO DAILY Prescribed by: CHARO MULLINS on 05/06/20 1428 Dipyridamole/Aspirin 1 Ea Cap, 1 CAP PO DAILY, (Reported) Ferrous Sulfate 325 Mg Tablet, 325 MG PO BID, (Reported) Folic Acid 0.8 Mg Tablet, 0.8 MG PO DAILY, (Reported) Hydralazine HCl 50 Mg Tablet, 50 MG PO TID, (Reported) Lisinopril 10 Mg Tablet, 10 MG PO DAILY@0900 Prescribed by: CHARO MULLINS on 05/06/20 1428 Simvastatin 40 Mg Tablet, 20 MG PO HS, (Reported) TAKES OF A 40MG TAB Tamsulosin HCl 0.4 Mg Cap, 0.8 MG PO DAILY, (Reported) TAKES 2 (0.4MG) CAPS Past Otbdtlz-Ibgoiv-Ezqzrr Hx Patient Social History Alcohol Use: Denies Use Recreational Drug Use: No Recent Foreign Travel: No Contact w/other who traveled: No Recent Infectious Disease Expo: No Immunizations Up To Date Date of Pneumonia Vaccine: May 06, 2015 Date of Influenza Vaccine: Apr 02, 2020 Surgeries Yes (ONE KNEE REPLACED 1998 & THE OTHER KNEE IN 2001) Joint Replacement (Knee sx b/l ) Respiratory No Cardiovascular Yes Chronic Edema/Swelling, Hypertension Neurological Yes Stroke (Ischemic stroke 10 years ago ) Reproductive System Hx Reproductive Disorders: No Sexually Transmitted Disease: No Genitourinary Yes Renal Failure (CKD, GFR of 33) Gastrointestinal No Musculoskeletal Yes Degenerate Disk Disease Endocrine History of Endocrine Disorders: No HEENT History of HEENT Disorders: No Cancer No Psychosocial History of Psychiatric Problem: No Integumentary History of Skin or Integumenta: No Blood Transfusions History of Blood Disorders: No Review of Systems Constitutional: No chills, No diaphoresis Respiratory: No cough; orthopnea, short of breath Cardiovascular: No chest pain; edema (b/l LE +2/4); No palpitations; syncope Gastrointestinal: No abdominal pain; nausea, vomiting Physical Exam Vital Signs Vital Signs - First Documented 05/03/20 05/03/20 10:05 10:45 Temp 37.2 Pulse 61 Resp 16 B/P (MAP) 169/66 (100) Pulse Ox 93 O2 Delivery Room Air O2 Flow Rate 4.00 Capillary Refill : Less Than 3 SecondsLess Than 3 Seconds Height, Weight, BMI Height: '" Weight: lbs. oz. kg; 35.15 BMI Method:Stated General Appearance: No Apparent Distress, WD/WN Eyes: Bilateral Eye Normal Inspection, Bilateral Eye PERRL, Bilateral Eye EOMI HEENT: PERRL/EOMI, Normal ENT Inspection Neck: Full Range of Motion, Normal Inspection Respiratory: Chest Non Tender, No Accessory Muscle Use, No Respiratory Distress, Crackles (in b/l lower lung wang) Cardiovascular: Regular Rate, Rhythm, No Murmur, Normal Peripheral Pulses, Bradycardia (HR in the 40's - 50's ) Gastrointestinal: Normal Bowel Sounds Rectal: Deferred Extremity: Normal Capillary Refill, Normal Inspection, Pedal Edema (+2/4 LE edema ) Neurologic/Psychiatric: Alert, Oriented x3, Normal Mood/Affect Skin: Normal Color, Warm/Dry Assessment/Plan Assessment and Plan NSTEMI: 05/03/20 Head/cervical Spine CT showed no acute injury related to pts fall. Pt went to laborer operator this morning, one stent placed. Start stent-platelet eluding medication. Cardiology managing this aspect of pts care. Acute CHF exacerbation: BNP was 236 yesterday, consider repeating pts level. Co uld contribute to low O2 sat at ER yesterday. 05/04 CXR could not exclude mild volume overload and central venous congestion. Continue nasal cannula. Consider starting a diuretic. Bradycardia: unknown etiology, appears stable. Consider avoiding meds that lower HR such as BBs or non-dihydropyridine CCBs. HTN: Continue I.V. verapamil as needed; BP has dropped to normal range since admission. Consider restarting home medication regiment. CKD: estimated GFR in lower 30's, potentially due to longstanding HTN. BUN and creatinine elevated, but near levels from 05/28/10 labs. Suggests elevated baseline. Admission Diagnosis Admission Status: Inpatient Order (span 2 midnights) Reason for Inpatient Admission: NSTEMI, Acute CHF Clinical Quality Measures DVT/VTE Risk/Contraindication: Risk Factor Score Per Nursin RFS Level Per Nursing on Admit: 4+=Very High CHARO MULLINS MD 05/05/20 1639: Allergies and Home Medications Allergies Coded Allergies: No Known Drug Allergies (Unverified , 05/02/10) Home Medications Allopurinol 100 Mg Tablet, 100 MG PO DAILY, (Reported) Aspirin 81 Mg Tablet.dr, 81 MG PO DAILY Prescribed by: CHARO MULLINS on 05/06/20 1428 Atorvastatin Calcium 80 Mg Tablet, 80 MG PO HS Prescribed by: CHARO MULLINS on 05/06/20 1428 Cholecalciferol (Vitamin D3) 50 Mcg Capsule, 50 MCG PO DAILY, (Reported) Clopidogrel Bisulfate 75 Mg Tablet, 75 MG PO DAILY Prescribed by: CHARO MLULINS on 05/06/20 1428 Dipyridamole/Aspirin 1 Ea Cap, 1 CAP PO DAILY, (Reported) Ferrous Sulfate 325 Mg Tablet, 325 MG PO BID, (Reported) Folic Acid 0.8 Mg Tablet, 0.8 MG PO DAILY, (Reported) Hydralazine HCl 50 Mg Tablet, 50 MG PO TID, (Reported) Lisinopril 10 Mg Tablet, 10 MG PO DAILY@0900 Prescribed by: CHARO MULLISN on 05/06/20 1428 Simvastatin 40 Mg Tablet, 20 MG PO HS, (Reported) TAKES OF A 40MG TAB Tamsulosin HCl 0.4 Mg Cap, 0.8 MG PO DAILY, (Reported) TAKES 2 (0.4MG) CAPS Patient Home Medication List Home Medication List Reviewed: Yes Assessment/Plan Assessment and Plan NSTEMI Sinus bradycardia Cardiology consutled, appreciate assistance Performed left heart catheterization With coronary stent placement Continue aspirin and plavix Begin Lipitor Metoprolol not given due to bradycardia ACEi not started due to CKD HTN CKD Gout BPH Continue home meds DVT Prophylaxis: Lovenox Problems: (1) Non-ST elevation [place] (NSTEMI) Status: Acute Admission Diagnosis NSTEMI Admission Status: Inpatient Order (span 2 midnights) Reason for Inpatient Admission: NSTEMI requiring Cardiology evaluation and likely intervention Supervisory-Addendum Brief Verification & Attestation Participated in pt care: history, MDM, physical Personally performed: exam, history, MDM, supervision of care Care discussed with: Medical Student Procedures: n/a Results interpretation: Verified all documentation Verification and Attestation of Medical Student E/M Service A medical student performed and documented this service in my presence. I reviewed and verified all information documented by the medical student and made modifications to such information, when appropriate. I personally performed the physical exam and medical decision making. Charo Mullins, May 05, 2020,16:43 RUPERT MAHARAJ MED STUDENT May 04, 2020 12:36 CHARO MULLINS MD May 05, 2020 16:39
--- NOTE | 2020-05-04 13:40 | NUR ---
RN CALLED EMS AND EMS MATCH MARKER TO HAVE PT TRANSFERRED HOME VIA AMBULANCE. TWO EMT'S CAME TO ASSIST WITH HER TRANSFER. PT HAD ALL HER BELONGINGS IN PLASTICA BAG, HER TRILOGY VENT THAT WAS ATTACHED TO PT AND WORKING ON BATTERY LIFE WHEN THEY LEFT. RN ADMIN 2 LORTABS TO HER PRIOR TO LEAVING VIA PEG TUBE. PEG TUBE FLUSHED BEFORE SHE LEFT AND WAS PATENT. PTS LU CATH WAS STILL PLACED IN PT AND BALLOON INTACT. PT REPORTED HAVING BLADDER SPASMS AFTER LASIX WAS ADMIN, PT REPORTED THAT THIS WAS COMMON. PT HAS UPPER RIGHT MIDLINE THAT WAS PLACED ON MONDAY AND REMAINS D/T IV THERAPY AT HOME THAT WILL BE PROVIDED BY HOME HEALTH. THIS RN CALLED PTS , REGINE, TO LET HIM KNOW THAT PT WOULD BE HOME SHORTLY, HE SAID THAT HE AND OTHERS WERE AT HOME WAITING FOR HER. PT HAS D/C PAPERWORK WITH HER AND NON EMERGENT TRANSFER SHEET FILLED OUT WAS GIVEN TO EMT'S.
[2020-05-05] MEDS: NS IV 1000 ML 1,000 ML IV SCH ×5 (00:41→09:13)
[2020-05-05 05:52] LABS: HEMOGLOBIN 9.4 g/dL (13.3-17.7); MEAN PLATELET VOLUME 9.3 fL (9.0-12.2); WHITE BLOOD COUNT 4.8 10^3/uL (4.3-11.0)
[2020-05-05 06:24] LABS: CALCIUM 8.7 MG/DL (8.5-10.1); CREATININE SERUM 1.7 MG/DL (0.60-1.30)
[2020-05-05] MEDS: ASPIRIN E.C. 81 MG (ECOTRIN) TAB PO SCH (08:31)
[2020-05-05] MEDS: CLOPIDOGREL 75 MG (PLAVIX) TABLET PO SCH (08:31)
[2020-05-05] MEDS ORDERED: ASPIRIN E.C. 81 MG (ECOTRIN) TAB PO SCH (09:00)
[2020-05-05] MEDS ORDERED: SIMV40TA25 PO (09:18)
[2020-05-05] MEDS ORDERED: TMSL.4C PO (09:18)
[2020-05-05] MEDS ORDERED: ALLO100T PO (09:18)
[2020-05-05] MEDS ORDERED: DPAS20025 PO (09:18)
[2020-05-05] MEDS ORDERED: FOLI0.8T PO (09:18)
--- NOTE | 2020-05-05 09:20 | NUR ---
SPOKE WITH THE PT AND [facility] (I WILL PUT A COPY ON HIS CHART) TO COMPLETE THE MED REC 03-02-2020 SIMVASTATIN 40MG #45/90DS 04-07-2020 ALLOPURINOL 100MG #90/90DS 04-09-2020 TAMSULOSIN 0.4MG #180/90DS 04-13-2020 HYDRALAZINE 50MG #270/90DS 04-26-2020 AGGRENOX #60/30DS ACCORDING TO THE PT HE TAKES THE FOLLOWING OTC MEDICATIONS: FOLIC ACID VITAMIN D IRON
--- NOTE | 2020-05-05 10:48 | Progress Note ---
Subjective Subjective Date Seen by Provider: May 05, 2020 Time Seen by Provider: 10:05 Pt fully alert and oriented. Pt has no cc at this time and no concerns post-cath with stent placement yesterday. Pt states he moves to bedside commode without dizziness, syncope or increased SOB. VS stable this morning. Cardiac cath insertion site c/d/i this morning. Pt passed stool since procedure yesterday. Review of Systems General: No Chills, No Night Sweats Pulmonary: No Dyspnea, No Cough, No Pleuritic Chest Pain Cardiovascular: Edema; No: Chest Pain, Palpitations Gastrointestinal: No: Nausea, Vomiting, Abdominal Pain All Other Systems Reviewed All Other Systems Reviewed: Yes Objective Exam Vital Signs Vital Signs - First Documented 05/03/20 05/03/20 10:05 10:45 Temp 37.2 Pulse 61 Resp 16 B/P (MAP) 169/66 (100) Pulse Ox 93 O2 Delivery Room Air O2 Flow Rate 4.00 Capillary Refill : Less Than 3 SecondsLess Than 3 Seconds General Appearance: No Apparent Distress, WD/WN Eyes: Bilateral Eye Normal Inspection, Bilateral Eye PERRL, Bilateral Eye EOMI HEENT: PERRL/EOMI, Normal ENT Inspection Neck: Full Range of Motion, Normal Inspection Respiratory: Chest Non Tender, No Accessory Muscle Use, No Respiratory Distress, Crackles (in b/l lower lung wang) Cardiovascular: Regular Rate, Rhythm, No Murmur, Normal Peripheral Pulses, Bradycardia (HR in the 40's - 50's ) Gastrointestinal: Normal Bowel Sounds Rectal: Deferred Back: Normal Inspection, No CVA Tenderness, No Vertebral Tenderness Extremity: Normal Capillary Refill, Normal Inspection, Pedal Edema (+2/4 LE edema ) Neurologic/Psychiatric: Alert, Oriented x3, Normal Mood/Affect Skin: Normal Color, Warm/Dry Results Lab Laboratory Tests 05/05/20 05:26: White Blood Count 4.8, Red Blood Count 3.12L, Hemoglobin 9.4L, Hematocrit 29L, Mean Corpuscular Volume 94, Mean Corpuscular Hemoglobin 30, Mean Corpuscular Hemoglobin Concent 32, Red Cell Distribution Width 13.7, Platelet Count 177, Mean Platelet Volume 9.3, Sodium Level 135, Potassium Level 4.0, Chloride Level 108H, Carbon Dioxide Level 18L, Anion Gap 9, Blood Urea Nitrogen 31H, Creatinine 1.70H, Estimat Glomerular Filtration Rate 38, BUN/Creatinine Ratio 18, Glucose Level 100, Calcium Level 8.7 Assessment/Plan Assessment/Plan Admission Dx NSTEMI, FALL Admission Status: Inpatient Order (span 2 midnights) Assessment and Plan NSTEMI Sinus bradycardia Cardiology consutled, appreciate assistance Performed left heart catheterization with coronary stent placement Continue aspirin and plavix Continue Lipitor Metoprolol not given due to bradycardia ACEi not started due to CKD HTN CKD Gout BPH Continue home meds Debility PT/OT DVT Prophylaxis: Lovenox Problems: (1) Non-ST elevation [place] (NSTEMI) Clinical Quality Measures Admission Status Admission Dx NSTEMI, FALL DVT/VTE Risk/Contraindication: Risk Factor Score Per Nursin RFS Level Per Nursing on Admit: 4+=Very High Supervisory-Addendum Brief Verification & Attestation Participated in pt care: history, MDM, physical Personally performed: exam, history, MDM, supervision of care Care discussed with: Medical Student Procedures: n/a Results interpretation: Verified all documentation Verification and Attestation of Medical Student E/M Service A medical student performed and documented this service in my presence. I reviewed and verified all information documented by the medical student and made modifications to such information, when appropriate. I personally performed the physical exam and medical decision making. Charo Mullins, May 05, 2020,16:14 RUPERT MAHARAJ MED STUDENT May 05, 2020 10:48 CHARO MULLINS MD May 05, 2020 16:17
--- NOTE | 2020-05-05 13:42 | Physical Therapy Evaluation ---
PT Evaluation-General Medical Diagnosis Admission Date May 03, 2020 at 11:59 Medical Diagnosis: non STEMI/fall Onset Date: May 03, 2020 Therapy Diagnosis Therapy Diagnosis: impaired mobility/weakness Precautions Precautions/Isolations: Fall Prevention, Standard Precautions Referral Physician: Juan Antonio Reason for Referral: Evaluation/Treatment Medical History Pertinent Medical History: CVA (10 yrs ago with right sided deficite), HTN, Renal Insufficiency Current History EMS secondary to fall from turning around while shaving (became dizzy and vomited) Reviewed History: Yes Social History Home: Single Level Current Living Status: Spouse Entry Into Home: Ramp Prior Prior Level of Function SCALE: Activities may be completed with or without assistive devices. 6-Ngkoafqpzv-ljpzlmt completes the activity by him/herself with no assistance from a helper. 5-Set-up or Clean-up Assistance-helper sets up or cleans up; patient completes activity. [place] assists only prior to or following the activity. 4-Supervision or Touching Assistance-helper provides verbal cues and/or touching/steadying and/or contact guard assistance as patient completes activity. Assistance may be provided throughout the activity or intermittently. 3-Partial/Moderate Assistance-helper does LESS THAN HALF the effort. [place] lifts, holds or supports trunk or limbs, but provides less than half the effort. 2-Substantial/Maximal Assistance-helper does MORE THAN HALF the effort. [place] lifts or holds trunk or limbs and provides more than half the effort. 5-Mvdatdxqu-tphkyj does ALL the effort. Patient does none of the effort to complete the activity. Or, the assistance of 2 or more helpers is required for the patient to complete the activity. If activity was not attempted, code reason: 7-Patient Refused. 9-Not Applicable-not attempted and the patient did not perform the activity before the current illness, exacerbation or injury. 10-Not Attempted due to Environmental Limitations-(lack of equipment, weather restraints, etc.). 88-Not Attempted due to Medical Conditions or Safety Concerns. Bed Mobility: 9 Transfers (B,C,W/C): 5 Gait: 5 Stairs: 9 Wheelchair Mobility: 2 Indoor Mobility (Ambulation): Needed Some Help Stairs: Not [place] Prior Devices Use: Manual wheelchair, Walker patient sleeps in lift chair and ambulates short distances per his report PT Evaluation-Current Subjective Patient states,"I'm going home. I need my medication you don't have." PT redirected patient to agree to participate with therapy to determine current LOF. Patient reluctantly agrees. Objective Patient Orientation: Person, Time, Situation Attachments: Oxygen, [place] Catheter ROM/Strength ROM Lower Extremities right LE ER with noted ankle deformity/ left LE WFL Strength Lower Extremities right LE 3/5 grossly all planes/left LE 3+/5 grossly all planes Integumentary/Posture Integumentary refer to nursing notes Bladder Incontinence: [place] Cath Posture trunk flexed posture Neuromuscular (Tone, Coordination, Reflexes) grossly intact Sensory Vision: Functional Hearing: Functional Transfers Sit to Lying (QC): 2 Lying to Sitting/Side of Bed(Q: 2 Sit to Stand (QC): 4 Chair/Arw-se-Iujft Xfer(QC): 7 Toilet Transfer (QC): 7 Patient sleeps in lift chair and does not perform bed mobility at home per his report Gait Does the Patient Walk?: Yes Mode of Locomotion: Both Anticipated Mode of Locomotion: Both Walk 10 feet (QC): 4 Walk 50 ft with 2 Turns(QC): 4 Walk 150 ft (QC): 88 Distance: 50' Gait Assistive Device: FWW Comments/Gait Description noted right LE ER with lag (patient relies heavily on FWW for upright support) Balance Sitting Static: Normal Sitting Dynamic: Normal Standing Static: Fair Standing Dynamic: Fair Assessment/Needs 89 y.o. male, is currently at a high fall risk due to current LOF. Patient is adamant to return to home. Patient unable to don shoes which he reports he does at home. Noted increase SOA with minimal activity with SAO2 93%. Patient would benefit from skilled placement and/or home health therapy due to current mobility impairments. PT attempted to educate patient on importance of safety concerns upon returning to home, however, patient reports he has his "own ways of doing things at home versus here". SW notified. Rehab Potential: Fair PT Residential Goals Residential Goals PT Residential Goals Time Frame: May 16, 2020 Roll Left & Right (QC): 5 Sit to Lying (QC): 5 Lying-Sitting on Side/Bed(QC): 5 Sit to Stand (QC): 5 Chair/Hmv-ru-Iqeff Xfer(QC): 5 Toilet Transfer (QC): 5 Does the Patient Walk: Yes Walk 10 feet (QC): 5 Walk 50ft with 2 Turns (QC): 5 PT Plan Problem List Problem List: Activity Tolerance, Functional Strength, Safety, Balance, Gait, Transfer, Bed Mobility Treatment/Plan Treatment Plan: Continue Plan of Care Treatment Plan: Bed Mobility, Education, Functional Activity Marianela, Functional Strength, Gait, Safety, Therapeutic Exercise, Transfers Treatment Duration: May 16, 2020 Frequency: 6 times per week Estimated Hrs Per Day: .5 hour per day Time/GCodes Time In: 1305 Time Out: 1321 Total Billed Treatment Time: 16 Total Billed Treatment 1 visit [facility] 16 min SHYLA PAZ PT May 05, 2020 13:42
--- NOTE | 2020-05-05 14:40 | Occupational Therapy Eval ---
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 states that he was standing at home to shave, and fell. He states that he does not know why. Reviewed History: Yes Social History Home: Single Level Current Living Status: Spouse Entry Into Home: Ramp ADL-Prior Level of Function SCALE: Activities may be completed with or without assistive devices. 7-Nsrdwzevcx-unyrctk completes the activity by him/herself with no assistance from a helper. 5-Set-up or Clean-up Assistance-helper sets up or cleans up; patient completes activity. [place] assists only prior to or following the activity. 4-Supervision or Touching Assistance-helper provides verbal cues and/or touching/steadying and/or contact guard assistance as patient completes activity. Assistance may be provided throughout the activity or intermittently. 3-Partial/Moderate Assistance-helper does LESS THAN HALF the effort. [place] lifts, holds or supports trunk or limbs, but provides less than half the effort. 2-Substantial/Maximal Assistance-helper does MORE THAN HALF the effort. [place] lifts or holds trunk or limbs and provides more than half the effort. 7-Nmcqixokf-qkdqax does ALL the effort. Patient does none of the effort to complete the activity. Or, the assistance of 2 or more helpers is required for the patient to complete the activity. If activity was not attempted, code reason: 7-Patient Refused. 9-Not Applicable-not attempted and the patient did not perform the activity before the current illness, exacerbation or injury. 10-Not Attempted due to Environmental Limitations-(lack of equipment, weather restraints, etc.). 88-Not Attempted due to Medical Conditions or Safety Concerns. ADL PLOF Comments Pt. states that he is independent at home. Pt. states that he steps into and out of his shower, and dresses on a chair that is lower than the bed level here. Pt. verbalizes that he uses a lift chair at home, and does not sleep in a regular bed. He states that his grandson can come over to help him if needed early in the morning. He uses a walker at home, and a manual wheelchair occasionally per his report. Self Care: Needed Some Help Functional Cognition: Unknown DME/Equipment: Bath Chair, Shower DME/Equipment Comments Lift chair, walker, manual wheelchair. 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 states, "I'm not having any pain from this deal." Mental Status/Objective Patient Orientation: Person Attachments: IV, Oxygen Current Glasses/Contacts: Yes Hand Dominance: Right Upper Extremity ROM Pt. is able to raise bilateral UE WFL, but demonstrates slower movement with right shoulder flexion. ADL-Treatment On/Off Footwear (QC): 3 Other Treatments Pt. agrees to work with OT. Pt. transfers supine-sit with mod assistance. Once on side of bed, pt. able to balance self, but is unable to fully bring self to side of bed. He attempts to doff/don socks, but is only able to doff/don right sock, but unable to doff left. Pt. states that he has a different system at home, and sits on a lower chair. OT prompted him to stand to re-position self in bed, toward HOB, and Pt. is unable to lift self. He throws himself into bed, and is able to get feet into bed. Once in bed, he is unable to functionally position self without assistance. Pt. has difficulty finding phone/call light that is in bed with him, as he has difficulty moving self to position. OT elevates HOB and call light/phone placed on him and in his hands. Pt. verbalizes that he is independent at home with his set up, even though he is not independent at this facility. Pt. is encouraged that he needs to sit up in chair more, or even on side of bed. He states that he knows he won't get better without moving more. Education OT Patient Education: Correct positioning, Modified ADL techniques, Progress toward Goal/Update tx plan, Purpose of tx/functional activities, Reviewed precautions, Rehab process, Transfer techniques Teaching Recipient: Patient Teaching Methods: Demonstration, Discussion Response to Teaching: Verbalize Understanding, Return Demonstration OT Short Term Goals Short Term Goals Time Frame: May 12, 2020 Eatin Oral hygiene: 3 Toileting hygiene: 3 Upper body dressin OT Penitentiary Goals Penitentiary Goals Time Frame: May 19, 2020 Eating (QC): 6 Oral Hygiene (QC): 5 Toileting Hygiene (QC): 4 Upper Body Dressing (QC): 4 Lower Body Dressing (QC): 3 On/Off Footwear (QC): 3 Additional Goals: 1-Demonstrate ADL Tasks, 2-Verbalize Understanding, 3- ImproveStrength/[place] 1=Demonstrate adherence to instructed precautions during ADL tasks. 2=Patient will verbalize/demonstrate understanding of assistive devices/modifications for ADL. 3=Patient will improve strength/tolerance for activity to enable patient to perform ADL's. OT Education/Plan Problem List/Assessment Assessment: Decreased Activ Tolerance, Dependent Transfers, Impaired Bed Mobility, Impaired Funct Balance, Impaired I ADL's, Impaired Self-Care Skills, Restricted Funct UE ROM Discharge Recommendations Plan/Recommendations: Continue POC Therapy Discharge Recommendati: 24 Hour Supervision, Post Acute OT Treatment Plan/Plan of Care Treatment,Training & Education: Yes Patient would benefit from OT for education, treatment and training to promote independence in ADL's, mobility, safety and/or upper extremity function for ADL's. Plan of Care: ADL Retraining, Functional Mobility, UE Funct Exercise/Act Treatment Duration: May 19, 2020 Frequency: 5 times per week Estimated Hrs Per Day: .25 hour per day Agreement: Yes Rehab Potential: Fair Time/GCodes Start Time: 13:45 Stop Time: 14:15 Total Time Billed (hr/min): 30 Billed Treatment Time 1, EVH x 15minutes, FA x 15minutes QUOC VALDERRAMA OT May 05, 2020 14:40
--- NOTE | 2020-05-05 16:29 | NUR ---
CM/SS visited with patient for discharge planning. Patient was oriented x4. Plan: Undetermined at this time. Home: The patient lives at home with his . The patient reports that he gets around the home with a front wheeled walker but reports he does not need extra assistance. The patient sleeps in a lift chair. Patient reports that his grandson comes to the house every day to feed his cats. Equipment: The patient owns a front wheeled walker. He states he has a shower chair. SNF: The patient has been to [facility] a few times in the past for a broken ankle and knee surgery. He states that at this time he is not willing to go into a half-way home. The patient believes that he does not need it. CM/SS spoke with the patient's daughter Sangita to discuss discharge. Per Sangita, she wants patient to discharge to a half-way facility. CM/SS discussed therapy notes and patient's unwillingness to go. She is having a family meeting to discuss discharge plans. IRF: CM/SS left voicemail for September, to review clinical to see if patient meets criteria. Home Health: Patient has had home health in the past through [facility]. They have since then, shut down. Patient declines having this set up home health at time of discharge. The patient does not feel like he needs it. Insurance: Patient has [employer]. Primary Care Physician: Dr. De Leon through [facility]. CM/SS will contact Sangita in the morning to further discuss discharge plans.
[2020-05-05] MEDS ORDERED: ONDANSETRON 4 MG/2 ML (SDV) Z0FRAN IV PRN (16:45)
[2020-05-05] MEDS ORDERED: ENOXAPARIN 40 MG/0.4 ML (LOVENOX) SYR SQ SCH (16:45)
[2020-05-05] MEDS ORDERED: polyethylene glycoL POWDER 17 GM (MIRALAX) PACK PO PRN (16:45)
[2020-05-05] MEDS ORDERED: BISACODYL 10 MG SUPP (DULCOLAX) PR PRN (16:45)
[2020-05-05] MEDS ORDERED: ANTACID SUSP 30 ML UDC (MYLANTA) PO PRN (16:45)
[2020-05-05] MEDS ORDERED: ONDANSETRON 4 MG (ZOFRAN) ORAL DISSOLVE TAB PO PRN (16:45)
[2020-05-05] MEDS ORDERED: MELATONIN 3 MG TABLET PO PRN (16:45)
[2020-05-05] MEDS ORDERED: ACETAMINOPHEN 325 MG TABLET PO PRN (16:45)
--- NOTE | 2020-05-05 16:46 | Cardiology Progress Note ---
Cardiology SOAP Progress Note Subjective: No chest pain. Objective: I&O/Vital Signs 05/05/20 05/05/20 05/05/20 05/05/20 06:47 08:00 08:09 09:00 Temp 36.4 Pulse 52 57 Resp 20 B/P (MAP) 184/79 Pulse Ox 95 O2 Delivery Nasal Cannula Nasal Cannula Nasal Cannula O2 Flow Rate 3.00 3.00 3.00 05/05/20 05/05/20 05/05/20 05/05/20 11:22 11:45 12:00 12:45 Temp 36.3 Pulse 54 61 Resp 20 B/P (MAP) 182/72 Pulse Ox 96 O2 Delivery Nasal Cannula Nasal Cannula Nasal Cannula O2 Flow Rate 3.00 3.00 3.00 05/05/20 15:44 Temp 36.4 Pulse 54 Resp 22 B/P (MAP) 163/72 Pulse Ox 97 O2 Delivery Nasal Cannula O2 Flow Rate 3.00 05/05/20 00:00 Intake Total 1090 ml Output Total 1300 ml Balance -210 ml Constitutional: appears stated age, AAO x 3; No apparent distress; well- developed, well-nourished Respiratory: chest is bilaterally symmetric, lungs clear to auscultation Cardiovascular: regular rate-rhythm, S1 and S2; No diastolic murmur, No systolic murmur Gastrointestional: soft, audible bowel sounds; No spleenomegaly Extremities: normal range of motion, non-tender, normal inspection; No clubbing, No cyanosis; no lower extremity edema bilateral; No significant edema Neurologic/Psychiatric: no motor/sensory deficits, alert, normal mood/affect, oriented x 3, power is 5/5 both on sides Skin: normal color, warm/dry; No rash, No ulcerations Results/Procedures: Labs Laboratory Tests 05/05/20 05:26: White Blood Count 4.8, Red Blood Count 3.12L, Hemoglobin 9.4L, Hematocrit 29L, M pastor Corpuscular Volume 94, Mean Corpuscular Hemoglobin 30, Mean Corpuscular Hemoglobin Concent 32, Red Cell Distribution Width 13.7, Platelet Count 177, Mean Platelet Volume 9.3, Sodium Level 135, Potassium Level 4.0, Chloride Level 108H, Carbon Dioxide Level 18L, Anion Gap 9, Blood Urea Nitrogen 31H, Creatinine 1.70H, Estimat Glomerular Filtration Rate 38, BUN/Creatinine Ratio 18, Glucose Level 100, Calcium Level 8.7 A/P: Assessment/Dx: Non-STEMI, Acute congestive heart failure, Possible epidural hematoma, Acute kidney injury, Mechanical fall, Previous history of stroke Plan: Non-STEMI, positive troponin. 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 Successful PCI with drug-eluting stent. Dual antiplatelet therapy, statin, MILADYS inhibitor, beta felipe. 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 Acute congestive heart failure, mildly elevated BNP. Patient had mild hypoxia and was put on oxygen. Echocardiogram Acute kidney injury, defer to the primary team. Improved kidney function with IV fluids. Mechanical fall, defer to the primary team. Previous history of stroke, continue aspirin. Thank you for your consultation. Please call me if you have any questions. Juan Jose Bob MD, FACP, FACC, FSCAI, FHRS, CCDS Interventional Cardiology Cardiac Electrophysiology Vascular Medicine and Endovascular Interventions Kae BOB MD May 05, 2020 16:46
[2020-05-05] MEDS: DOCUSATE SODIUM 100 MG (COLACE) CAP PO SCH (20:01)
[2020-05-05] MEDS: hydrALAZINE (APRESOLINE) 25 MG TAB PO SCH (20:01)
[2020-05-05] MEDS: SENNOSIDES 8.6 MG (SENOKOT) TAB PO SCH (20:01)
[2020-05-06 08:00] VITALS: BP 152/70
[2020-05-06] MEDS: ASPIRIN E.C. 81 MG (ECOTRIN) TAB PO SCH (08:46)
[2020-05-06] MEDS: DOCUSATE SODIUM 100 MG (COLACE) CAP PO SCH (08:46)
[2020-05-06] MEDS: SENNOSIDES 8.6 MG (SENOKOT) TAB PO SCH (08:46)
[2020-05-06] MEDS: CLOPIDOGREL 75 MG (PLAVIX) TABLET PO SCH (08:46)
[2020-05-06] MEDS: hydrALAZINE (APRESOLINE) 25 MG TAB PO SCH ×2 (08:46→13:00)
[2020-05-06] MEDS ORDERED: TAMSULOSIN 0.4 MG (FLOMAX) CAP PO SCH (09:00)
[2020-05-06] MEDS ORDERED: ALLOPURINOL 100 MG (ZYLOPRIM) TAB PO SCH (09:00)
[2020-05-06] MEDS ORDERED: lisINopril 10 MG (PRINIVIL) TABLET PO SCH (09:00)
[2020-05-06] MEDS ORDERED: lisINopril 40 MG (PRINIVIL) TABLET PO SCH (09:00)
--- NOTE | 2020-05-06 11:17 | Physical Therapy Daily Note ---
PT Daily Note-Current Subjective Pt presents supine in bed. Pt agrees to PT and would like to walk. Pt reports no pain. Appearance AT conclusion of PT treatment pt is left sitting upright in recliner with access to tray, call button, and all needs have been met. Mental Status Patient Orientation: Person, Place, Time, Eyes Open, Situation Attachments: Oxygen Transfers SCALE: Activities may be completed with or without assistive devices. 3-Wldjkfjafa-vjoztmo completes the activity by him/herself with no assistance from a helper. 5-Set-up or Clean-up Assistance-helper sets up or cleans up; patient completes activity. [place] assists only prior to or following the activity. 4-Supervision or Touching Assistance-helper provides verbal cues and/or touching/steadying and/or contact guard assistance as patient completes activity. Assistance may be provided throughout the activity or intermittently. 3-Partial/Moderate Assistance-helper does LESS THAN HALF the effort. [place] lifts, holds or supports trunk or limbs, but provides less than half the effort. 2-Substantial/Maximal Assistance-helper does MORE THAN HALF the effort. [place] lifts or holds trunk or limbs and provides more than half the effort. 5-Cwtxnexkg-xozzbs does ALL the effort. Patient does none of the effort to complete the activity. Or, the assistance of 2 or more helpers is required for the patient to complete the activity. If activity was not attempted, code reason: 7-Patient Refused. 9-Not Applicable-not attempted and the patient did not perform the activity before the current illness, exacerbation or injury. 10-Not Attempted due to Environmental Limitations-(lack of equipment, weather restraints, etc.). 88-Not Attempted due to Medical Conditions or Safety Concerns. Lying to Sitting/Side of Bed(Q: 4 Sit to Stand (QC): 3 SBA lying-> EOB. Min assist sit to stand. Gait Training Does the Patient Walk?: Yes Distance: 15' Walk 10 feet (QC): 4 Gait Assistive Device: FWW CGA. Pt amublates with shoes on for stability and with R foot externally rotated. Exercises Seated Therapy Exercises: Ankle pumps, Long arc quads, Hip flexion, Hip abd/add Seated Reps: 20 Treatments Gait training and LE strengthening Assessment Current Status: Fair Progress Pt struggles with sit to stand initially with non-slick socks on; pt improved sit to stand with shoes on and bed slightly raised. Pt ambulates with R foot ER forcing him to bear weight on his instep. Pt instructed to use the call button for assistance up if he needs out of the recliner. PT Mcc Goals Customs Compliance Analyst Goals PT Customs Compliance Analyst Goals Time Frame: May 16, 2020 Roll Left & Right (QC): 5 Sit to Lying (QC): 5 Lying-Sitting on Side/Bed(QC): 5 Sit to Stand (QC): 5 Chair/Exm-um-[place] Xfer(QC): 5 Toilet Transfer (QC): 5 Does the Patient Walk: Yes Walk 10 feet (QC): 5 Walk 50ft with 2 Turns (QC): 5 PT Plan Problem List Problem List: Activity Tolerance, Functional Strength, Safety, Balance, Gait, Transfer, Bed Mobility, ROM Treatment/Plan Treatment Plan: Continue Plan of Care Treatment Plan: Bed Mobility, Education, Functional Activity Marianela, Functional Strength, Gait, Safety, Therapeutic Exercise, Transfers Treatment Duration: May 16, 2020 Frequency: 6 times per week Estimated Hrs Per Day: .5 hour per day Safety Risks/Education Patient Education: Gait Training, Transfer Techniques, Correct Positioning, Safety Issues Teaching Recipient: Patient Teaching Methods: Demonstration, Discussion Response to Teaching: Reinforcement Needed Time/GCodes Time In: 1043 Time Out: 1103 Total Billed Treatment Time: 20 Total Billed Treatment 1 visit EX Jessica' NEHEMIAH FRANKS PT May 06, 2020 11:17
--- NOTE | 2020-05-06 11:57 | Occupational Ther Daily Note ---
OT Current Status-Daily Note Subjective Pt alert, sitting in bed. Pt agrees to therapy. No c/o pain. Physician in room to discuss going to [facility] today. Mental Status/Objective Patient Orientation: Person, Place, Time, Situation Attachments: [place] Catheter, IV, Oxygen, Telemetry ADL-Treatment Pt agrees to shower. Mod A for sit to stand. Min A using FWW to ambulate to shower and transfer into shower. Pt able to wash all areas except buttocks and feet sitting on shower bench. Assist to dry feet. Assist to don/doff shoes and socks. Mod A for sit to stand from shower bench using grabbars. Ambulated with min A to bed. Assist to lift B LE's into bed. After session, pt lying in bed with call light/phone in reach. All needs met in room. O2 in place. Therapy Code Descriptions/Definitions Functional [place] Measure: 0=Not Assessed/NA 4=Minimal Assistance 1=Total Assistance 5=Supervision or Setup 2=Maximal Assistance 6=Modified [place] 3=Moderate Assistance 7=Complete IndependenceSCALE: Activities may be completed with or without assistive devices. 0-Ajgwexgyze-izlxepw completes the activity by him/herself with no assistance from a helper. 5-Set-up or Clean-up Assistance-helper sets up or cleans up; patient completes activity. [place] assists only prior to or following the activity. 4-Supervision or Touching Assistance-helper provides verbal cues and/or touching/steadying and/or contact guard assistance as patient completes activity. Assistance may be provided throughout the activity or intermittently. 3-Partial/Moderate Assistance-helper does LESS THAN HALF the effort. [place] lifts, holds or supports trunk or limbs, but provides less than half the effort. 2-Substantial/Maximal Assistance-helper does MORE THAN HALF the effort. [place] lifts or holds trunk or limbs and provides more than half the effort. 4-Qqthonndq-aoewtr does ALL the effort. Patient does none of the effort to complete the activity. Or, the assistance of 2 or more helpers is required for the patient to complete the activity. If activity was not attempted, code reason: 7-Patient Refused. 9-Not Applicable-not attempted and the patient did not perform the activity before the current illness, exacerbation or injury. 10-Not Attempted due to Environmental Limitations-(lack of equipment, weather restraints, etc.). 88-Not Attempted due to Medical Conditions or Safety Concerns. Shower/Bathe Self (QC): 3 On/Off Footwear: 2 OT Short Term Goals Short Term Goals Time Frame: May 12, 2020 Eatin Oral hygiene: 3 Toileting hygiene: 3 Upper body dressin OT Vocational Technical Education Director Goals Nursing Home Goals Time Frame: May 19, 2020 Eating (QC): 6 Oral Hygiene (QC): 5 Toileting Hygiene (QC): 4 Upper Body Dressing (QC): 4 Lower Body Dressing (QC): 3 On/Off Footwear (QC): 3 Additional Goals: 1-Demonstrate ADL Tasks, 2-Verbalize Understanding, 3-ImproveStrength/[place]ela 1=Demonstrate adherence to instructed precautions during ADL tasks. 2=Patient will verbalize/demonstrate understanding of assistive devices/modifications for ADL. 3=Patient will improve strength/tolerance for activity to enable patient to perform ADL's. OT Education/Plan Problem List/Assessment Assessment: Decreased Activ Tolerance, Decreased UE Strength, Impaired Bed Mobility, Impaired Coordination, Impaired Funct Balance, Impaired Self-Care Skills Discharge Recommendations Plan/Recommendations: Continue POC Treatment Plan/Plan of Care Patient would benefit from OT for education, treatment and training to promote independence in ADL's, mobility, safety and/or upper extremity function for ADL's. Plan of Care: ADL Retraining, Functional Mobility, UE Funct Exercise/Act Treatment Duration: May 19, 2020 Frequency: 5 times per week Estimated Hrs Per Day: .25 hour per day Agreement: Yes Rehab Potential: Fair Time/GCodes Start Time: 11:12 Stop Time: 11:50 Total Time Billed (hr/min): 35 Billed Treatment Time 1 visit-ADL 3 (38 min) RICHIE LAZAR May 06, 2020 11:57
[2020-05-06 12:00] VITALS: BP 189/92
[2020-05-06] MEDS ORDERED: ASPI-1238 PO (14:28)
[2020-05-06] MEDS ORDERED: LISI10TA2 PO (14:28)
[2020-05-06] MEDS ORDERED: ATOR80TA76 PO (14:28)
[2020-05-06] MEDS ORDERED: CLOP75TA28 PO (14:28)
--- NOTE | 2020-05-06 14:34 | Discharge Summary ---
Discharge Summary Hospital Course Hospital Course Date of Admission: May 03, 2020 at 11:59 Admission Diagnosis : NSTEMI Family Physician/Provider: Gino Rodgers Physician Date of Discharge: 05/06/20 Discharge Diagnosis: NSTEMI Hospital Course: Junaid Juares is an 82-year-old male who was admitted with non-ST elevation CO. Cardiology was consulted and assisted in his care. He underwent a left heart catheterization and had coronary stenting performed. He was started on aspirin and Plavix. He was also started on Lipitor and lisinopril. He was not started on a beta felipe due to bradycardia. His course was complicated by debility and he was discharged to [facility] for ongoing therapies. He should follow-up during the next alf rounds. He should follow-up with cardiology in about 2 weeks. Labs and Pending Lab Test: Home Meds Active Aspirin EC (Aspirin) 81 Mg Tablet.dr 81 Mg PO DAILY 30 Days Lisinopril 10 Mg Tablet 10 Mg PO DAILY@0900 30 Days Atorvastatin Calcium 80 Mg Tablet 80 Mg PO HS 30 Days Clopidogrel (Clopidogrel Bisulfate) 75 Mg Tablet 75 Mg PO DAILY 30 Days Reported Simvastatin 40 Mg Tablet 20 Mg PO HS TAKES OF A 40MG TAB Aggrenox 25 mg-200 mg Capsule (Dipyridamole/Aspirin) 1 Ea Cap 1 Cap PO DAILY Folic Acid 0.8 Mg Tablet 0.8 Mg PO DAILY Flomax (Tamsulosin HCl) 0.4 Mg Cap 0.8 Mg PO DAILY TAKES 2 (0.4MG) CAPS Allopurinol 100 Mg Tablet 100 Mg PO DAILY Iron (Ferrous Sulfate) 325 Mg Tablet 325 Mg PO BID Vitamin D3 (Cholecalciferol (Vitamin D3)) 50 Mcg Capsule 50 Mcg PO DAILY Hydralazine HCl 50 Mg Tablet 50 Mg PO TID Instructions to Patient/Family Assessment/Instructions take medications as prescribed. Participate in therapies. Follow-up with next alf rounds. Follow-up with cardiology in 2 weeks. Follow Up Appt.: next alf rounds Skilled NF Admit to: [facility] Certification (SNF) I certify that SNF services are required to be given on an inpatient basis because of the above named patient's need for long-term care on a continuing basis for the conditions(s) for which he/she was receiving inpatient hospital services prior to his/her transfer to the SNF. Prison Facility Order: Nursing Services, Sidewalk Repairer-Evaluate & Treat, Physical Therapy-Evaluate & Treat Oxygen Delivery Method: Nasal Cannula (TITRATE ABLE) Oxygen Flow Rate L/min (Range): 3 Discharge Diet: No Restrictions Daily Activity as Tolerated: Yes Resuscitation Status: Full Code Charo Mullins May 06, 2020 14:31 Discharge Physical Exam General: Alert, Oriented X3, Cooperative, No Acute Distress HEENT: Atraumatic, EOMI, Mucous Memb Moist/[place] Lungs: Clear to Auscultation, Normal Air Movement Heart: Regular Rate, Normal S1, Normal S2, No Murmurs Abdomen: Normal Bowel Sounds, Soft, No Tenderness Extremities: No Edema, No Tenderness/Swelling Skin: No Rashes, No Significant Lesion Neuro: Normal Speech, Other (motor weakness) Psych/Mental Status: Mental Status NL, Mood NL CHARO MULLINS MD May 06, 2020 14:34
--- NOTE | 2020-05-06 14:38 | Cardiology Progress Note ---
Subjective Date Seen by Provider: May 06, 2020 Time Seen by Provider: 14:33 Subjective/Events-last exam Patient sitting up in bed, no new complaints, denies any chest pain, dyspnea, dizziness or lightheadedness. Review of Systems General: No Chills, No Night Sweats, No Fatigue, No Malaise, No Appetite, No Other HEENT: No Head Aches, No Visual Changes, No Eye Pain, No Ear Pain, No Dysphasia, No Sinus Congestion, No Post Nasal Drip, No Sore Throat, No Other Pulmonary: No Dyspnea, No Cough, No Pleuritic Chest Pain, No Other Cardiovascular: No: Chest Pain, Palpitations, Orthopnea, Paroxysmal Noc. Dyspnea, Edema, Lt Headedness, Other Objective-Cardiology Exam Last Set of Vital Signs Vital Signs 05/06/20 05/06/20 05/06/20 12:00 12:38 14:34 Temp 36.0 Pulse 59 Resp 22 B/P (MAP) 189/92 (124) Pulse Ox 96 O2 Delivery Nasal Cannula O2 Flow Rate 3.00 Capillary Refill : Less Than 3 SecondsLess Than 3 Seconds I&O Intake and Output 05/06/20 00:00 Intake Total 3100 ml Output Total 1900 ml Balance 1200 ml Intake Oral 2100 ml IV Total 1000 ml Output Urine Total 1900 ml General: Alert, Oriented X3, Cooperative HEENT: Atraumatic, PERRLA Neck: Supple, No JVD, No Thyromegaly Lungs: Clear to Auscultation, Normal Air Movement Heart: Regular Rate, Normal S1, Normal S2, No Murmurs Abdomen: Normal Bowel Sounds, Soft, No Tenderness, No Hepatosplenomegaly, No Masses Extremities: No Clubbing, No Cyanosis, No Edema, Normal Pulses, No Tenderness/Swelling Skin: No Rashes, No Breakdown, No Significant Lesion Neuro: Normal Gait, Normal Speech, Strength at 5/5 X4 Ext, Normal Tone, Sensation Intact Psych/Mental Status: Mental Status NL, Mood NL A/P-Cardiology Admission Diagnosis Non-STEMI CHF HTN Bradycardia Assessment/Plan Non-STEMI, positive troponin. 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 Successful PCI with drug-eluting stent. Dual antiplatelet therapy, statin, MILADYS inhibitor, Unable to tolerate beta felipe secondary to underlying bradycardia. 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 Acute congestive heart failure, mildly elevated BNP. Echocardiogram reported ejection fraction 55-65 percent, mild aortic stenosis, pulmonary artery pressure of 50-55 mmHg Acute kidney injury, defer to the primary team. Improved kidney function with IV fluids. Sinus bradycardia/SSS, asymptomatic, continue to monitor. LBBB Mechanical fall, defer to the primary team. Previous history of stroke, continue aspirin. Patient was seen and evaluated with Jody, examination performed, management plan was discussed, agree with the current scribed note, I made few changes to the note using Italic font Patient was seen at bedside, sitting comfortably, still mildly bradycardic, asymptomatic Tolerating current medication well Continue to monitor on telemetry, okay for discharge from cardiology standpoint Clinical Quality Measures DVT/VTE Risk/Contraindication: Risk Factor Score Per Nursin RFS Level Per Nursing on Admit: 4+=Very High JODY VILLANUEVA May 06, 2020 14:38 WEI DORSEY MD May 06, 2020 15:42
--- NOTE | 2020-05-06 14:49 | NUR ---
CM/SS finalized discharge. Plan: Patient is discharging to [facility] today 05/06. 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 CM/SS spoke with patient's daughter this morning to discuss the family meeting. She reports the family discussed that they would prefer the patient to go to a inpatient rehab unit or a senior care home facility due to safety risk. CM/SS spoke with Liliane. Patient does not have a qualifying diagnosis and [employer] insurance would likely deny. September reports that she is willing to submit if needed. CM/SS was informed that patient did not have [employer] and is straight Medicare. CM/SS spoke with patient's physician. He stated patient is now willing and agreeable to discharge to [facility]. CM/SS sent a secure e-mail referral. CM/SS spoke with the patient. He is agreeable with plan and did not have any further questions. CM/SS contacted [place] at the main campus medical center. eKnya attempted to submit for insurance and found that patient was straight medicare. 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 CM/SS sent finalized discharge orders. CM/SS contacted Sangita dixon today to give updates and discuss discharge planning. No further needs.
--- NOTE | 2020-05-06 15:02 | NUR ---
ATTEMPTED TO CALL REPORT TO [facility] WHO REQUESTED THIS RN TO CALL BACK
[2020-05-06 16:05] VITALS: BP 168/85
--- NOTE | 2020-05-06 16:24 | NUR ---
ATTEMPTED TO CALL REPORT TO [facility], NO ANSWER
--- NOTE | 2020-05-06 16:44 | NUR ---
ATTEMPTED TO CALL REPORT TO [facility] EM[facility]GENC[facility], EMERGENCY DEPARTMENT CLINICIAN ASKED THIS RN TO CALL BACK.
[2020-05-06 17:08] VITALS: BP 168/85
--- NOTE | 2020-05-06 17:08 | NUR ---
REPORT GIVEN TO JOSE AT [facility].
== END 2020-05-06 16:05 | DRG 246 ==
LOC: EDUNIT# 10:05 → ER 10:05 → CSD 11:59 → 4TH 05-04 15:41
PROVIDERS: ADMIT Family Medicine; ATTEND Family Medicine
PROC: 027034Z Dilation of Coronary Artery, One Artery with Drug-eluting Intraluminal Device, Percutaneous Approach (ICD-10-PCS; principal; 2020-05-04)
PROC: 4A023N7 Measurement of Cardiac Sampling and Pressure, Left Heart, Percutaneous Approach (ICD-10-PCS; 2020-05-04)
PROC: B2111ZZ Fluoroscopy of Multiple Coronary Arteries using Low Osmolar Contrast (ICD-10-PCS; 2020-05-04)
DX: I21.4 Non-ST elevation (NSTEMI) myocardial infarction (principal); I50.21 Acute systolic (congestive) heart failure; I13.0 Hypertensive heart and chronic kidney disease with heart failure and stage 1 through stage 4 chronic kidney disease, or unspecified chronic kidney disease; N17.9 Acute kidney failure, unspecified; N18.9 Chronic kidney disease, unspecified; Z86.73 Personal history of transient ischemic attack (TIA), and cerebral infarction without residual deficits; M10.9 Gout, unspecified; N40.0 Benign prostatic hyperplasia without lower urinary tract symptoms; I49.5 Sick sinus syndrome; I44.7 Left bundle-branch block, unspecified; W19.XXXA Unspecified fall, initial encounter
CPT/HCPCS: 36415; 70450; 71045; 72125; 80048; 80053; 80061; 83735; 83874; 83880; 84484; 85007; 85027; 85379; 85610; 85730; 87635; 93005; 93041; 93306; 93458

== ENCOUNTER 2020-05-11 21:26 | Emergency (ER) | payer OTHER ==
[~2020-05-11] VITALS: Ht 172 cm; Wt 123.3 kg
[~2020-05-11 21:26] MED LIST changes: +ALLO100T PO; +ASPI-1238 PO; +ATOR80TA76 PO; +CHOL20003 PO; +CLOP75TA28 PO; +FERR-84 PO; +FOLI0.8T PO; +HYDR-3924 PO; +L.AC1CAP6 PO; +LISI10TA2 PO; +SIMV20TA26 PO; +SIMV40TA25 PO
[2020-05-11] MEDS ORDERED: NS IV 500 ML 500 ML IV ONE (21:36)
--- NOTE | 2020-05-11 21:43 | ED GI ---
General Stated Complaint: GI BLEED Source of Information: Patient, EMS Exam Limitations: No Limitations History of Present Illness Date Seen by Provider: May 11, 2020 Time Seen by Provider: 21:25 Initial Comments Patient presents ER by EMS from [facility] where he recently moved in with chief complaint of hematemesis starting this afternoon. He has never had EGD or colonoscopy. He takes aspirin, Aggrenox and clopidogrel but no blood thinners. He's had a normal bowel movement this morning without any black tarry appearance or bright red blood. He used to take iron but stopped it about 4 days ago because he was having black tarry stools and thought the iron was causing it. He follows with the [place] doctor in [place], [place]. He does not have a local physician or surgeon. No abdominal surgeries. He had a stent placed last week in his heart. He is having no shortness of breath cough chest pain fever chills or nausea at this time. He did not receive anything en route from EMS the sides an IV. EKG showed left bundle branch block. Patient also complains of insomnia for the past couple weeks. 05/06/20: Recent non-STEMI with severe OM1 stenosis suggesting thrombosis. PCI with drug-eluting stent by Dr. Bob. Dual antiplatelet therapy, statins, MILADYS inhibitor, beta felipe. History of digestive heart failure occasionally needing oxygen. Previous history of stroke. 05/03/[address] Bob: EF of 55-65% with wall thickness mildly increased and concentric hypertrophy as well as grade 1 diastolic dysfunction. Mild aortic stenosis and mild to moderate tricuspid regurgitation. Allergies and Home Medications Allergies Coded Allergies: No Known Drug Allergies (Unverified , 05/02/10) Home Medications Allopurinol 100 Mg Tablet, 100 MG PO DAILY, (Reported) Aspirin 81 Mg Tablet., 81 MG PO DAILY Prescribed by: JUSTIN MULLINS on 05/06/20 142 Atorvastatin Calcium 80 Mg Tablet, 80 MG PO HS Prescribed by: JUSTIN MULLINS on 05/06/201427 Cholecalciferol (Vitamin D3) 50 Mcg Capsule, 50 MCG PO DAILY, (Reported) Clopidogrel Bisulfate 75 Mg Tablet, 75 MG PO DAILY Prescribed by: JUSTIN MULLINS on 05/06/20 142 Dipyridamole/Aspirin 1 Ea Cap, 1 CAP PO DAILY, (Reported) Ferrous Sulfate 325 Mg Tablet, 325 MG PO BID, (Reported) Folic Acid 0.8 Mg Tablet, 0.8 MG PO DAILY, (Reported) Hydralazine HCl 50 Mg Tablet, 50 MG PO TID, (Reported) Lisinopril 10 Mg Tablet, 10 MG PO DAILY@0900 Prescribed by: JUSTIN MULLINS on 05/06/20 1428 Ondansetron 4 Mg Tab.rapdis, 4 MG PO Q6H PRN for NAUSEA/VOMITING Prescribed by: FRANKIE RIVAS on 05/11/202238 Pantoprazole Sodium 20 Mg Tablet.dr, 20 MG PO BID Prescribed by: FRANKIE RIVAS on 05/11/202238 Simvastatin 40 Mg Tablet, 20 MG PO HS, (Reported) TAKES OF A 40MG TAB Tamsulosin HCl 0.4 Mg Cap, 0.8 MG PO DAILY, (Reported) TAKES 2 (0.4MG) CAPS Patient Home Medication List Home Medication List Reviewed: Yes Review of Systems Review of Systems Constitutional: No chills, No diaphoresis EENTM: No Blurred Vision, No Double Vision Respiratory: Denies Cough, Denies Shortness of Air Cardiovascular: Denies Chest Pain, Denies Irregular Heart Rate, Denies Lightheadedness Gastrointestinal: See HPI; Denies Abdomen Distended, Denies Abdominal Pain, Denies Blood Streaked Stools, Denies Constipated, Denies Diarrhea; Nausea; Denies Poor Fluid Intake, Denies Rectal Bleeding; Vomiting Genitourinary: Denies Burning, Denies Discharge Musculoskeletal: No back pain, No joint pain All Other Systems Reviewed Negative Unless Noted: Yes Past Llguuus-Zscgyj-Momkvw Hx Patient Social History Alcohol Use: Denies Use Recreational Drug Use: No Smoking Status: Never a Smoker Immunizations Up To Date Date of Pneumonia Vaccine: May 06, 2015 Date of Influenza Vaccine: Apr 02, 2020 Past Medical History Surgeries: Yes (ONE KNEE REPLACED 1998 & THE OTHER KNEE IN 2001) Joint Replacement Respiratory: No Cardiac: Yes Chronic Edema/Swelling, Hypertension Neurological: Yes Stroke Reproductive Disorders: No Sexually Transmitted Disease: No Genitourinary: Yes Renal Failure Gastrointestinal: No Musculoskeletal: Yes Degenerate Disk Disease Endocrine: No HEENT: No Cancer: No Psychosocial: No Integumentary: No Blood Disorders: No Physical Exam Vital Signs Vital Signs - First Documented 05/11/20 21:26 Temp 35.9 Pulse 67 Resp 18 B/P (MAP) 195/82 (119) Pulse Ox 96 O2 Delivery Room Air Capillary Refill : Height/Weight/BMI Height: '" Weight: lbs. oz. kg; 35.15 BMI Method:Stated General Appearance: WD/WN, no apparent distress HEENT: PERRL/EOMI, pharynx normal Neck: full range of motion Respiratory: lungs clear, normal breath sounds, no respiratory distress, no accessory muscle use Cardiovascular: normal peripheral pulses, regular rate, rhythm Peripheral Pulses: 2+ Radial Pulses (R), 2+ Radial Pulses (L) Gastrointestinal: normal bowel sounds, non tender, soft, no organomegaly Extremities: normal range of motion, non-tender, normal capillary refill Neurologic/Psychiatric: alert, normal mood/affect, oriented x 3 Skin: normal color, warm/dry Progress/Results/Core Measures Results/Orders Lab Results Laboratory Tests Test 05/11/20 21:32 Range/Units White Blood Count 7.4 4.3-11.0 10^3/uL Red Blood Count 3.87 L 4.30-5.52 10^6/uL Hemoglobin 11.5 #L 13.3-17.7 g/dL Hematocrit 35 L 40-54 % Mean Corpuscular Volume 91 80-99 fL Mean Corpuscular Hemoglobin 30 25-34 pg Mean Corpuscular Hemoglobin Concent 33 32-36 g/dL Red Cell Distribution Width 13.7 10.0-14.5 % Platelet Count 280 130-400 10^3/uL Mean Platelet Volume 8.9 L 9.0-12.2 fL Immature Granulocyte % (Auto) 0 % Neutrophils (%) (Auto) 73 42-75 % Lymphocytes (%) (Auto) 14 12-44 % Monocytes (%) (Auto) 11 0-12 % Eosinophils (%) (Auto) 1 0-10 % Basophils (%) (Auto) 0 0-10 % Neutrophils # (Auto) 5.4 1.8-7.8 10^3/uL Lymphocytes # (Auto) 1.0 1.0-4.0 10^3/uL Monocytes # (Auto) 0.8 0.0-1.0 10^3/uL Eosinophils # (Auto) 0.1 0.0-0.3 10^3/uL Basophils # (Auto) 0.0 0.0-0.1 10^3/uL Immature Granulocyte # (Auto) 0.0 0.0-0.1 10^3/uL Sodium Level 142 135-145 MMOL/L Potassium Level 3.9 3.6-5.0 MMOL/L Chloride Level 108 H 98-107 MMOL/L Carbon Dioxide Level 21 21-32 MMOL/L Anion Gap 13 5-14 MMOL/L Blood Urea Nitrogen 33 H 7-18 MG/DL Creatinine 1.84 H 0.60-1.30 MG/DL Estimat Glomerular Filtration Rate 35 BUN/Creatinine Ratio 18 Glucose Level 142 H 70-105 MG/DL Calcium Level 9.3 8.5-10.1 MG/DL Corrected Calcium 9.7 8.5-10.1 MG/DL Total Bilirubin 0.5 0.1-1.0 MG/DL Aspartate Amino Transf (AST/SGOT) 18 5-34 U/L Alanine Aminotransferase (ALT/SGPT) 22 0-55 U/L Alkaline Phosphatase 63 40-136 U/L Total Protein 7.2 6.4-8.2 GM/DL Albumin 3.5 3.2-4.5 GM/DL Lipase 63 8-78 U/L My Orders Orders - FRANKIE RIVAS Cbc With Automated Diff (05/11/20 21:36) Comprehensive Metabolic Panel (05/11/20 21:36) Lipase (05/11/20 21:36) Pantoprazole Injection (Protonix Injecti (05/11/20 21:45) Ed Iv/Invasive Line Start (05/11/20 21:36) Ns Iv 500 Ml (Sodium Chloride 0.9%) (05/11/20 21:36) Occult Blood,Gastric Fluid (05/11/20 21:36) Trazodone Tablet (Desyrel Tablet) (05/11/20 22:45) Medications Given in ED Current Medications Medications Dose Ordered Sig/David Route Start Time Stop Time Status Last Admin Dose Admin Pantoprazole 40 mg ONCE ONCE IV 05/11/20 21:45 05/11/20 21:46 DC 05/11/20 22:02 40 MG Sodium Chloride 500 ml @ 0 mls/hr Q0M ONCE IV 05/11/20 21:36 05/11/20 21:40 DC 05/11/20 22:02 500 MLS/HR Vital Signs/I&O 05/11/20 21:26 Temp 35.9 Pulse 67 Resp 18 B/P (MAP) 195/82 (119) Pulse Ox 96 O2 Delivery Room Air Progress Progress Note #1: Time: 22:35 Progress Note His hemoglobin is okay above 11. We will put him on PPIs and ondansetron and have him follow-up with Dr. Jesus, General Surgery on an outpatient basis this week. It is possible that his recent iron tablets is responsible for his symptoms of black emesis but we were unable to collect a sample to gastric occult. We will give him a dose of trazodone for insomnia and send him home with a prescription for ondansetron. He has not received any anti-emetics and has had no nausea since arrival. The emesis bag he came with is dry. He has had no material deterioration during his ER stay. We will inform his nursing staff to work on getting him before his primary care doctor for management of insomnia. Progress Note #2: Time: 22:47 Progress Note After this provider left the room the patient had a small amount of mucousy emesis on his chin. Gastroccult was positive. 8 mg ondansetron was ordered IV. 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 Decision time for Depature: 22:20 Referrals: JUAN F JESUS,LOCAL PHYSICIAN (PCP) Primary Care Physician Patient Instructions: Insomnia, Gastrointestinal Bleeding (DC) Add. Discharge Instructions: Drink plenty of fluids. Pantoprazole 20 mg twice a day for the next 30 days. You may use the Tylenol PM as prescribed for insomnia. Follow-up with primary care doctor for insomnia. Follow-up with Dr. Jesus within the next week for management of upper GI bleed. Return to the ER promptly should you have intractable abdominal pain or nausea. Ondansetron one tablet every 6 hours as necessary for nausea and/or vomiting. Scripts Ondansetron (Ondansetron Odt) 4 Mg Tab.rapdis 4 MG PO Q6H PRN for NAUSEA/VOMITING, #15 TAB 0 Refills Prov: FRANKIE RIVAS 05/11/20 Pantoprazole Sodium (Pantoprazole Sodium) 20 Mg Tablet.dr 20 MG PO BID for 30 Days, #60 TAB 0 Refills Prov: FRANKIE RIVAS 05/11/20 Copy Copies To 1: JUAN F JESUS DO FRANKIE RIVAS May 11, 2020 21:43
[2020-05-11 21:44] LABS: BASOPHILS % (AUTO) 0 % (0-10); EOSINOPHILS # (AUTO) 0.1 10^3/uL (0.0-0.3); EOSINOPHILS % (AUTO) 1 % (0-10); HEMATOCRIT 35 % (40-54); HEMOGLOBIN 11.5 g/dL (13.3-17.7); LYMPHOCYTES % (AUTO) 14 % (12-44); MEAN CORPUSCULAR HEMOGLOBIN 30 pg (25-34); MEAN CORPUSCULAR HGB CONC 33 g/dL (32-36); MEAN CORPUSCULAR VOLUME 91 fL (80-99); MEAN PLATELET VOLUME 8.9 fL (9.0-12.2); MONOCYTES # (AUTO) 0.8 10^3/uL (0.0-1.0); MONOCYTES % (AUTO) 11 % (0-12); NEUTROPHILS # (AUTO) 5.4 10^3/uL (1.8-7.8); NEUTROPHILS % (AUTO) 73 % (42-75); PLATELET COUNT 280 10^3/uL (130-400); WHITE BLOOD COUNT 7.4 10^3/uL (4.3-11.0)
[2020-05-11] MEDS ORDERED: PANTOPRAZOLE 40 MG (PROTONIX) VIAL IV ONE (21:45)
[2020-05-11 21:50] LABS: ALBUMIN 3.5 GM/DL (3.2-4.5); POTASSIUM 3.9 MMOL/L (3.6-5.0)
[2020-05-11 21:51] LABS: CALCIUM 9.3 MG/DL (8.5-10.1)
[2020-05-11 21:52] LABS: TOTAL PROTEIN 7.2 GM/DL (6.4-8.2)
[2020-05-11 21:54] LABS: BILIRUBIN,TOTAL 0.5 MG/DL (0.1-1.0)
[2020-05-11 21:56] LABS: CREATININE SERUM 1.84 MG/DL (0.60-1.30)
[2020-05-11] MEDS ORDERED: ONDA4TAB11 PO (22:39)
[2020-05-11] MEDS ORDERED: PANT20TA18 PO (22:39)
[2020-05-11] MEDS ORDERED: ONDANSETRON 4 MG/2 ML (SDV) Z0FRAN IVP ONE (22:45)
[2020-05-11] MEDS ORDERED: traZODone 50 MG (DESYREL) TAB PO ONE (22:45)
[2020-05-11 23:17] VITALS: BP 164/83
== END 2020-05-11 23:17 | disposition home or self-care (01) ==
LOC: EDUNIT# 21:26 → ER 21:26
DX: K92.2 Gastrointestinal hemorrhage, unspecified (principal); G47.00 Insomnia, unspecified; I10 Essential (primary) hypertension; Z79.82 Long term (current) use of aspirin
CPT/HCPCS: 36415; 80053; 82274; 83690; 85025

== ENCOUNTER 2020-05-26 09:53 | Inpatient (IN) | payer MEDICARE, OTHER ==
[~2020-05-26] VITALS: Ht 172.7 cm; Wt 107.9 kg
[~2020-05-26 09:53] MED LIST changes: +ONDA4TAB11 PO; +PANT20TA18 PO
[2020-05-26] MEDS ORDERED: ACETAMINOPHEN 500 MG TAB (TYLENOL) PO PRN ×2 (10:30→13:45)
[2020-05-26 10:38] LABS: BASOPHILS % (AUTO) 0 % (0-10); EOSINOPHILS % (AUTO) 0 % (0-10); HEMATOCRIT 29 % (40-54); HEMOGLOBIN 9.3 g/dL (13.3-17.7); LYMPHOCYTES # (AUTO) 1.2 10^3/uL (1.0-4.0); LYMPHOCYTES % (AUTO) 13 % (12-44); MEAN CORPUSCULAR HEMOGLOBIN 29 pg (25-34); MEAN CORPUSCULAR HGB CONC 32 g/dL (32-36); MEAN CORPUSCULAR VOLUME 92 fL (80-99); MEAN PLATELET VOLUME 9.5 fL (9.0-12.2); MONOCYTES # (AUTO) 1.2 10^3/uL (0.0-1.0); MONOCYTES % (AUTO) 13 % (0-12); NEUTROPHILS # (AUTO) 6.4 10^3/uL (1.8-7.8); NEUTROPHILS % (AUTO) 73 % (42-75); PLATELET COUNT 245 10^3/uL (130-400); WHITE BLOOD COUNT 8.8 10^3/uL (4.3-11.0)
--- NOTE | 2020-05-26 10:38 | ED General ---
General Chief Complaint: General Problems/Pain Stated Complaint: GEN WEAKNESS Nursing Triage Note: ARRIVED VIA EMS FROM HOME WITH COMPLAINTS OF GENARLIZED WEAKNESS AND CONFUSION. Nursing Sepsis Screen: No Definite Risk Source of Information: Patient Exam Limitations: No Limitations History of Present Illness Date Seen by Provider: May 26, 2020 Time Seen by Provider: 09:57 Initial Comments Here with report of generalized weakness and confusion from home. This has been going on for a day or 2 at least. Patient denies any specific complaint except for constipation. Did recently have heart catheter procedure. Denies nausea, vomiting, cough, breathing problems or headache. Admits to weakness and family report reported confusion to EMS. Denies any known contact with [facility] although has several family members that help care for him at home. Timing/Duration: 1-2 Days, Getting Worse Severity: Moderate Associated Systoms: No Chest Pain, No Cough; Fever/Chills, Malaise; No Nausea/Vomiting, No Shortness of Air; Weakness Allergies and Home Medications Allergies Coded Allergies: No Known Drug Allergies (Unverified , 05/02/10) Home Medications Allopurinol 100 Mg Tablet, 100 MG PO DAILY, (Reported) Aspirin 81 Mg Tablet., 81 MG PO DAILY Prescribed by: JUSTIN MULLINS on 05/06/20 142 Atorvastatin Calcium 80 Mg Tablet, 80 MG PO HS Prescribed by: JUSTIN MULLINS on 05/06/20 142 Cholecalciferol (Vitamin D3) 50 Mcg Capsule, 50 MCG PO DAILY, (Reported) Clopidogrel Bisulfate 75 Mg Tablet, 75 MG PO DAILY Prescribed by: JUSTIN MULLINS on 05/06/20 142 Dipyridamole/Aspirin 1 Ea Cap, 1 CAP PO DAILY, (Reported) Ferrous Sulfate 325 Mg Tablet, 325 MG PO BID, (Reported) Folic Acid 0.8 Mg Tablet, 0.8 MG PO DAILY, (Reported) Hydralazine HCl 50 Mg Tablet, 50 MG PO TID, (Reported) Lisinopril 10 Mg Tablet, 10 MG PO DAILY@0900 Prescribed by: JUSTIN MULLINS on 05/06/20 142 Ondansetron 4 Mg Tab.rapdis, 4 MG PO Q6H PRN for NAUSEA/VOMITING Prescribed by: FRANKIE RIVAS on 05/11/202238 Pantoprazole Sodium 20 Mg Tablet., 20 MG PO BID Prescribed by: FRANKIE RIVAS on 05/11/202238 Simvastatin 40 Mg Tablet, 20 MG PO HS, (Reported) TAKES OF A 40MG TAB Tamsulosin HCl 0.4 Mg Cap, 0.8 MG PO DAILY, (Reported) TAKES 2 (0.4MG) CAPS Patient Home Medication List Home Medication List Reviewed: Yes Review of Systems Review of Systems Constitutional: see HPI; No chills; fever (Noted on arrival), malaise, weakness EENTM: No nose congestion, No throat pain Respiratory: No cough, No short of breath Cardiovascular: No chest pain; edema Gastrointestinal: constipation; No nausea, No vomiting Genitourinary: No dysuria, No pain Musculoskeletal: No muscle pain; muscle weakness Skin: no symptoms reported Psychiatric/Neurological: No Symptoms Reported Hematologic/Lymphatic: See HPI All Other Systems Reviewed Negative Unless Noted: Yes Past Ixkjvfg-Lvzlfb-Bvmrwd Hx Past Med/Social Hx: Reviewed Nursing Past Med/Soc Hx Patient Social History Alcohol Use: Denies Use Recreational Drug Use: No Smoking Status: Never a Smoker Recent Foreign Travel: No Contact w/Someone Who Travel: No Recent Infectious Disease Expo: No Recent Hopitalizations: Yes Immunizations Up To Date Tetanus Booster (TDap): Unknown PED Vaccines UTD: Yes Date of Pneumonia Vaccine: May 06, 2015 Date of Influenza Vaccine: Apr 02, 2020 Past Medical History Surgeries: Yes (ONE KNEE REPLACED 1998 & THE OTHER KNEE IN 2001) Joint Replacement Respiratory: No Cardiac: Yes Chronic Edema/Swelling, Hypertension Neurological: Yes Stroke Reproductive Disorders: No Sexually Transmitted Disease: No Genitourinary: Yes Renal Failure Gastrointestinal: No Musculoskeletal: Yes Degenerate Disk Disease Endocrine: No HEENT: No Cancer: No Psychosocial: No Integumentary: No Blood Disorders: No Family Medical History Reviewed Nursing Family Hx Physical Exam-Suspected Sepsis Physical Exam Vital Signs Vital Signs - First Documented 05/26/20 09:53 Temp 37.8 Pulse 75 Resp 18 B/P (MAP) 139/69 (92) Pulse Ox 95 O2 Delivery Room Air Capillary Refill : Less Than 3 Seconds Blood Pressure Mean: 92 Height, Weight, BMI Height: '" Weight: lbs. oz. kg; 33.00 BMI Method:Stated General Appearance: No Apparent Distress, WD/WN HEENT: PERRL/EOMI, Pharynx Normal Neck: Non Tender, Supple Respiratory: Lungs Clear, Normal Breath Sounds Cardiovascular: Regular Rate, Rhythm, No Murmur Gastrointestinal: Non Tender, Soft Back: Normal Inspection, No CVA Tenderness, No Vertebral Tenderness Extremity: No Calf Tenderness, Pedal Edema (3+ to the level of knee bilateral) Neurologic/Psychiatric: Alert, Oriented x3 Skin: normal color, warm/dry Focused Exam Lactate Level 05/26/20 10:16: Lactic Acid Level 1.39 Lactic Acid Level Laboratory Tests Test 05/26/20 10:16 Lactic Acid Level 1.39 MMOL/L (0.50-2.00) Progress/Results/Core Measures Suspected Sepsis Recent Fever Within 48 Hours: Yes Infection Criteria Present: Suspected New Infection New/Unexplained Altered Menta: Yes Sepsis Screen: No Definite Risk SIRS Temperature: Pulse: 75 Respiratory Rate: 18 Laboratory Tests 05/26/20 10:16: White Blood Count 8.8 Blood Pressure 139 /69 Mean: 92 05/26/20 10:16: Lactic Acid Level 1.39 Laboratory Tests 05/26/20 10:16: Creatinine 2.45H, INR Comment 1.3, Platelet Count 245, Total Bilirubin 0.5 Results/Orders Lab Results Laboratory Tests Test 05/26/20 10:05 05/26/20 10:13 05/26/20 10:16 Range/Units Urine Color YELLOW Urine Clarity CLOUDY H Urine pH 8.0 5-9 Urine Specific [place] 1.010 L 1.016-1.022 Urine Protein 2+ H NEGATIVE Urine Glucose (UA) NEGATIVE NEGATIVE Urine Ketones NEGATIVE NEGATIVE Urine Nitrite NEGATIVE NEGATIVE Urine Bilirubin NEGATIVE NEGATIVE Urine Urobilinogen 0.2 < = 1.0 MG/DL Urine Leukocyte Esterase 3+ H NEGATIVE Urine RBC (Auto) 2+ H NEGATIVE Urine RBC >100 H /HPF Urine WBC >100 H /HPF Urine Crystals NONE /LPF Urine Bacteria LARGE H /HPF Urine Casts NONE /LPF Urine Mucus NEGATIVE /LPF Urine Culture Indicated YES White Blood Count 8.8 4.3-11.0 10^3/uL Red Blood Count 3.18 L 4.30-5.52 10^6/uL Hemoglobin 9.3 L 13.3-17.7 g/dL Hematocrit 29 L 40-54 % Mean Corpuscular Volume 92 80-99 fL Mean Corpuscular Hemoglobin 29 25-34 pg Mean Corpuscular Hemoglobin Concent 32 32-36 g/dL Red Cell Distribution Width 13.5 10.0-14.5 % Platelet Count 245 130-400 10^3/uL Mean Platelet Volume 9.5 9.0-12.2 fL Immature Granulocyte % (Auto) 1 % Neutrophils (%) (Auto) 73 42-75 % Lymphocytes (%) (Auto) 13 12-44 % Monocytes (%) (Auto) 13 H 0-12 % Eosinophils (%) (Auto) 0 0-10 % Basophils (%) (Auto) 0 0-10 % Neutrophils # (Auto) 6.4 1.8-7.8 10^3/uL Lymphocytes # (Auto) 1.2 1.0-4.0 10^3/uL Monocytes # (Auto) 1.2 H 0.0-1.0 10^3/uL Eosinophils # (Auto) 0.0 0.0-0.3 10^3/uL Basophils # (Auto) 0.0 0.0-0.1 10^3/uL Immature Granulocyte # (Auto) 0.1 0.0-0.1 10^3/uL Prothrombin Time 16.9 H 12.2-14.7 SEC INR Comment 1.3 0.8-1.4 Activated Partial Thromboplast Time 37 H 24-35 SEC D-Dimer 1.85 H 0.00-0.49 UG/ML Sodium Level 137 135-145 MMOL/L Potassium Level 3.9 3.6-5.0 MMOL/L Chloride Level 111 H 98-107 MMOL/L Carbon Dioxide Level 18 L 21-32 MMOL/L Anion Gap 8 5-14 MMOL/L Blood Urea Nitrogen 54 H 7-18 MG/DL Creatinine 2.45 H 0.60-1.30 MG/DL Estimat Glomerular Filtration Rate 25 BUN/Creatinine Ratio 22 Glucose Level 136 H 70-105 MG/DL Lactic Acid Level 1.39 0.50-2.00 MMOL/L Calcium Level 8.8 8.5-10.1 MG/DL Corrected Calcium 9.6 8.5-10.1 MG/DL Total Bilirubin 0.5 0.1-1.0 MG/DL Aspartate Amino Transf (AST/SGOT) 21 5-34 U/L Alanine Aminotransferase (ALT/SGPT) 20 0-55 U/L Alkaline Phosphatase 68 40-136 U/L C-Reactive Protein High Sensitivity 14.16 H 0.00-0.50 MG/DL Total Protein 6.2 L 6.4-8.2 GM/DL Albumin 3.0 L 3.2-4.5 GM/DL Procalcitonin 9.41 H <0.10 NG/ML Coronavirus 2019 (GHULAM) Negative Negative Micro Results Microbiology 05/26/20 Influenza Types A,B Antigen (MARI) - Final, Complete My Orders Orders - JOE WEBBER MD Catheter(Urinary) Insert & Ass ,15 (05/26/20 10:25) Cbc With Automated Diff (05/26/20 10:25) Comprehensive Metabolic Panel (05/26/20 10:25) Blood Culture (05/26/20 10:25) Sputum Culture (05/26/20 10:25) Urinalysis (05/26/20 10:25) Urine Culture (05/26/20 10:25) Protime With Inr (05/26/20 10:25) Partial Thromboplastin Time (05/26/20 10:25) Chest 1 View, Ap/Pa Only (05/26/20 10:25) Acetaminophen Tablet (Tylenol Tablet) (05/26/20 10:30) Ed Iv/Invasive Line Start (05/26/20 10:25) Vital Signs Adult Sepsis Patie Q15M (05/26/20 10:25) O2 (05/26/20 10:25) Remove Rings In Anticipation O (05/26/20 10:25) Lactic Acid Analyzer (05/26/20 10:25) Influenza A And B Antigens (05/26/20 10:25) Fibrin Degradation Products (05/26/20 10:25) Procalcitonin (Pct) (05/26/20 10:25) Hs C Reactive Protein (05/26/20 10:25) Covid 19 Inhouse Test (05/26/20 10:25) Coronavirus Sars-Cov-2 So 2018 (05/26/20 10:05) Urine Culture (05/26/20 10:13) Ceftriaxone For Iv Use (Rocephin For I (05/26/20 11:55) Medications Given in ED Current Medications Medications Dose Ordered Sig/David Route Start Time Stop Time Status Last Admin Dose Admin Acetaminophen 1,000 mg ONCE PRN PO 05/26/20 10:30 05/26/20 10:31 DC 05/26/20 10:30 1,000 MG Vital Signs/I&O 05/26/20 09:53 Temp 37.8 Pulse 75 Resp 18 B/P (MAP) 139/69 (92) Pulse Ox 95 O2 Delivery Room Air Capillary Refill : Less Than 3 Seconds Blood Pressure Mean: 92 Progress Note : Progress Note Seen and evaluated on arrival by EMS. Fever noted on arrival. Initiated sepsis screen plus influenza and COVID-19 evaluation. LR 1 L bolus is running and we will continue at moderate rate. Tylenol 1 g p.o. ordered. Gal[place] catheter ordered due to immobility and the need for monitoring I's and O's especially in light of the rather significant edema and weakness. Monitor patient. 1157: Rocephin 1 g IV. Patient has urinary tract infection. Preliminary Covid testing negative. Formal testing pending. Will require admission. Case di scussed with Dr. Saldana and she agrees to accept patient for admission, inpatient status. Patient requests DNR. Patient agrees with plan. Diagnostic Imaging Diagonstic Imaging: Xray Plain Films/CT/US/NM/MRI: chest Comments [facility], [place] NAME: DINESH MARIN [facility] REC#: [id number] PT STATUS: REG ER : 1930 PHYSICIAN: JOE WEBBER MD ADMIT DATE: 05/26/20/ER Signed Date of Exam:05/26/20 CHEST 1 VIEW, AP/PA ONLY INDICATION: Sepsis. COMPARISON: Exam compared to 05/03/2020. FINDINGS: There is some perihilar and medial basilar pulmonary infiltrate, similar to the comparison. Heart size is stable. No effusion or pneumothorax. IMPRESSION: Perihilar and medial basilar infiltrates, unchanged. Dictated by: Dictated on workstation # [id number] Dict: 05/26/20 1057 Trans: 05/26/20 1113 AS6 [id number] Interpreted by: RAHUL MONTAÑO Electronically signed by: RAHUL MONTAÑO 05/26/20 1113 Departure Communication (Admissions) Time/Spoke to Admitting Phy: 11:57 Impression Primary Impression: Urinary tract infection Qualified Codes: N30.01 - Acute cystitis with hematuria Additional Impression: Person under investigation for COVID-19 Disposition: 09 ADMITTED INPATIENT Condition: Stable Admissions Decision to Admit Reason: Admit from ER (General) Decision to Admit/Date: May 26, 2020 Time/Decision to Admit Time: 11:57 Departure-Patient Inst. Referrals: NO,LOCAL PHYSICIAN (PCP/Family) Primary Care Physician JOE WEBBER MD May 26, 2020 10:38
[2020-05-26 10:43] LABS: POTASSIUM 3.9 MMOL/L (3.6-5.0)
[2020-05-26 10:44] LABS: CALCIUM 8.8 MG/DL (8.5-10.1)
--- NOTE | 2020-05-26 10:44 | NUR ---
PTS DAUGHTER RICKY - [phone].
--- NOTE | 2020-05-26 10:44 | NUR ---
TALKED WITH DAUGHTER ON THE PHONE AND UPDATE GIVEN.
[2020-05-26 10:45] LABS: TOTAL PROTEIN 6.2 GM/DL (6.4-8.2)
[2020-05-26 10:46] LABS: FIBRIN DEGRADATION PRODUCTS 1.85 UG/ML (0.00-0.49); INR 1.3 (0.8-1.4); PROTHROMBIN TIME PATIENT 16.9 SEC (12.2-14.7)
[2020-05-26 10:47] LABS: BILIRUBIN,TOTAL 0.5 MG/DL (0.1-1.0)
[2020-05-26 10:49] LABS: CREATININE SERUM 2.45 MG/DL (0.60-1.30)
--- NOTE | 2020-05-26 11:02 | Diagnostic Imaging Report ---
INDICATION: Sepsis. COMPARISON: Exam compared to 05/03/2020. FINDINGS: There is some perihilar and medial basilar pulmonary infiltrate, similar to the comparison. Heart size is stable. No effusion or pneumothorax. IMPRESSION: Perihilar and medial basilar infiltrates, unchanged. Dictated by: Dictated on workstation # [id number]
[2020-05-26 11:08] LABS: CLARITY,URINE CLOUDY; COLOR,URINE YELLOW
[2020-05-26 11:09] LABS: GLUCOSE, URINE (UA) NEGATIVE (NEGATIVE); PROTEIN,URINE 2+ (NEGATIVE)
[2020-05-26 11:10] LABS: BILIRUBIN,URINE NEGATIVE (NEGATIVE); KETONES,URINE NEGATIVE (NEGATIVE); LEUKOCYTE ESTERASE ,URINE 3+ (NEGATIVE); NITRITE,URINE NEGATIVE (NEGATIVE)
[2020-05-26 11:13] LABS: BACTERIA,URINE LARGE /HPF; RBC,URINE >100 /HPF; WBC,URINE >100 /HPF
[2020-05-26] MEDS ORDERED: cefTRIAXone FOR IV USE 1,000 MG in WATER (STERILE) FOR INJECTION 10 ML IV STA (11:55)
--- NOTE | 2020-05-26 12:10 | NUR ---
REPOSITIONED IN BED. DENIES NEEDS AT THIS TIME.
--- NOTE | 2020-05-26 13:00 | NUR ---
Dinesh Mor admitted to room 421-1, with an admitting diagnosis of UTI, on 05/26/20 from AM via , accompanied by .DINESH MARIN introduced to surroundings, call light, bed controls, phone, TV, temperature control, lights, meal times, smoking policy, visitor policy, side rail policy, bathrooms and showers. Patient Rights given to patient in the handbook.DINESH MARIN verbalizes understanding that [facility] is not responsible for the loss or damage to any personal effects or valuables that are kept in the patients posession during their hospitalization. DINESH MARIN verbalizes understanding of Interdisciplinary Patient Education. Patient and/or family were informed about the Rapid Response Team and its purpose.
[2020-05-26] MEDS ORDERED: ONDANSETRON 4 MG/2 ML (SDV) Z0FRAN IV PRN (13:45)
[2020-05-26] MEDS ORDERED: CATHETER FLUSH 10 ML SYR IV PRN (13:45)
[2020-05-26 14:10] VITALS: BP 134/63
[2020-05-26] MEDS: LACTATED RINGERS 1,000 ML IV SCH (14:56)
[2020-05-26 16:00] VITALS: BP 104/50
--- NOTE | 2020-05-26 16:57 | NUR ---
Dr Wilson notified for hr 45-47 bpm per ICU monitors
[2020-05-26 19:44] VITALS: BP 126/62
[2020-05-27] VITALS: BP 98/51
[2020-05-27 03:55] VITALS: BP 128/60
[2020-05-27] MEDS ORDERED: SIMV40TA PO (04:10)
[2020-05-27] MEDS ORDERED: PANT20TA2 PO (04:10)
[2020-05-27 06:12] LABS: BASOPHILS % (AUTO) 0 % (0-10); EOSINOPHILS # (AUTO) 0.1 10^3/uL (0.0-0.3); EOSINOPHILS % (AUTO) 2 % (0-10); HEMATOCRIT 27 % (40-54); HEMOGLOBIN 8.5 g/dL (13.3-17.7); LYMPHOCYTES # (AUTO) 0.8 10^3/uL (1.0-4.0); LYMPHOCYTES % (AUTO) 18 % (12-44); MEAN CORPUSCULAR HEMOGLOBIN 30 pg (25-34); MEAN CORPUSCULAR HGB CONC 31 g/dL (32-36); MEAN CORPUSCULAR VOLUME 95 fL (80-99); MEAN PLATELET VOLUME 9.5 fL (9.0-12.2); MONOCYTES # (AUTO) 0.6 10^3/uL (0.0-1.0); MONOCYTES % (AUTO) 13 % (0-12); NEUTROPHILS # (AUTO) 3.2 10^3/uL (1.8-7.8); NEUTROPHILS % (AUTO) 67 % (42-75); PLATELET COUNT 206 10^3/uL (130-400); WHITE BLOOD COUNT 4.8 10^3/uL (4.3-11.0)
[2020-05-27 06:27] LABS: ALBUMIN 2.7 GM/DL (3.2-4.5)
[2020-05-27 06:28] LABS: POTASSIUM 3.8 MMOL/L (3.6-5.0)
[2020-05-27 06:29] LABS: CALCIUM 8.5 MG/DL (8.5-10.1)
[2020-05-27 06:30] LABS: TOTAL PROTEIN 5.7 GM/DL (6.4-8.2)
[2020-05-27 06:32] LABS: BILIRUBIN,TOTAL 0.3 MG/DL (0.1-1.0)
[2020-05-27 06:34] LABS: CREATININE SERUM 2.05 MG/DL (0.60-1.30)
[2020-05-27] MEDS: LACTATED RINGERS 1,000 ML IV SCH (07:00)
--- NOTE | 2020-05-27 07:45 | NUR ---
DR. NICHOLSNO NOTIFIED OF PT'S COVID PCR TEST BEING NEGATIVE. VERBAL ORDERS RECEIVED TO TAKE PT OUT OF ISOLATION.
[2020-05-27 08:30] VITALS: BP 168/72
[2020-05-27] MEDS ORDERED: CLOPIDOGREL 75 MG (PLAVIX) TABLET PO ONE (10:15)
[2020-05-27] MEDS ORDERED: ASPIRIN E.C. 81 MG (ECOTRIN) TAB PO ONE (10:15)
--- NOTE | 2020-05-27 10:15 | History & Physical-Hospitalist ---
History of Present Illness HPI/Chief Complaint Pt is an 89yoCM with a PMH of CAD s/p recent stent who developed hematuria and presented to the emergency room yesterday. On Arrival he was found to be febrile until he was unaware of this. he was found to have a urinary tract infection. He was tested for COVID and this was negative. His daughter reported the social service agency director that he was very weak and it took 2 people to get him up. This morning he reports he was feeling better but still week. No complaints. He only question was to ask me a riddle about body parts with 3 letter. Source: patient Date Seen 05/27/20 Time Seen by a Provider: 10:05 Attending Physician Linda Wilson MD PCP No,Local Physician Referring Physician Date of Admission May 26, 2020 at 11:57 Home Medications & Allergies Home Medications Reviewed patient Home Medication Reconciliation performed by pharmacy medication reconciliations health record technician and/or nursing. Patients Allergies have been reviewed. Allergies Allergies Coded Allergies No Known Drug Allergies (Ofiglunxyu64/7/10) Past Qhlgxra-Hdaadg-Wdjqqj Hx Past Med/Social Hx: Reviewed Nursing Past Med/Soc Hx Patient Social History Alcohol Use: Denies Use Recreational Drug Use: No Smoking Status: Never a Smoker Recent Foreign Travel: No Contact w/other who traveled: No Recent Hopitalizations: Yes Recent Infectious Disease Expo: No Immunizations Up To Date Tetanus Booster (TDap): Unknown Pediatric: Yes Date of Pneumonia Vaccine: May 06, 2015 Date of Influenza Vaccine: Apr 02, 2020 Past Medical History Surgeries: Joint Replacement Cardiac: Chronic Edema/Swelling, Hypertension Neurological: Stroke Reproductive: No Sexually Transmitted Disease: No Genitourinary: Renal Failure Musculoskeletal: Degenerate Disk Disease History of Blood Disorders: No Family History Reviewed Nursing Family Hx Review of Systems Constitutional: fever, weakness EENTM: no symptoms reported Respiratory: No cough Cardiovascular: No chest pain; edema (chronic), Hx of Intervention; No palpitations Gastrointestinal: no symptoms reported Genitourinary: see HPI, dysuria Musculoskeletal: no symptoms reported Skin: no symptoms reported Psychiatric/Neurological: No Symptoms Reported Physical Exam Physical Exam Vital Signs Vital Signs - First Documented 05/26/20 09:53 Temp 37.8 Pulse 75 Resp 18 B/P (MAP) 139/69 (92) Pulse Ox 95 O2 Delivery Room Air Capillary Refill : Less Than 3 SecondsLess Than 3 Seconds Height, Weight, BMI Height: '" Weight: lbs. oz. kg; 36.17 BMI Method:Stated General Appearance: No Apparent Distress, Chronically ill, Obese HEENT: PERRL/EOMI, Moist Mucous Membranes Neck: Normal Inspection, Supple Respiratory: Lungs Clear, No Accessory Muscle Use, No Respiratory Distress Cardiovascular: Regular Rate, Rhythm, No Murmur Gastrointestinal: Normal Bowel Sounds, Non Tender, Soft Extremity: No Calf Tenderness, Swelling (non pitting edema bilaterally) Neurologic/Psychiatric: Alert, Oriented x3, Normal Mood/Affect; No Aphasia, No Facial Droop Results Results/Procedures Labs Laboratory Tests 05/26/20 10:16 05/27/20 05:46 Patient resulted labs reviewed. Imaging: Reviewed Imaging Report [facility] [place] [place] NAME: DINESH MARIN [facility] REC#: [id number] PT STATUS: REG ER : 1930 PHYSICIAN: JOE WEBBER MD ADMIT DATE: 05/26/20/ER Signed Date of Exam:05/26/20 CHEST 1 VIEW, AP/PA ONLY INDICATION: Sepsis. COMPARISON: Exam compared to 05/03/2020. FINDINGS: There is some perihilar and medial basilar pulmonary infiltrate, similar to the comparison. Heart size is stable. No effusion or pneumothorax. IMPRESSION: Perihilar and medial basilar infiltrates, unchanged. Dictated by: Dictated on workstation # [id number] Dict: 05/26/20 1057 Trans: 05/26/20 1113 AS6 [id number] Interpreted by: RAHUL MONTAÑO Electronically signed by: RAHUL MONTAÑO 05/26/20 1113 Assessment/Plan Admission Diagnosis UTI Admission Status: Inpatient Order (span 2 midnights) Reason for Inpatient Admission: see below Assessment and Plan UTI Continue Rocephin Await cultures Probiotic JERICHO on CKD Stage 3 Continue IVF gently Trend in AM generalized weakness PT/OT Will likely need placement following this admission for skilled therapy CAD with recent stent HTN Continue DAPT Hold lisinopril for JERICHO Resume hydralazine DVT ppx: Lovenox Clinical Quality Measures DVT/VTE Risk/Contraindication: Risk Factor Score Per Nursin RFS Level Per Nursing on Admit: 4+=Very High LINDA WILSON MD May 27, 2020 10:15
--- NOTE | 2020-05-27 10:55 | NUR ---
CM/SS visited with patient for discharge planning. Plan: Patient will discharge to [facility] skilled either 05/28 and Tuesday 05/29. ML-FS: CM/SS spoke to the patient's daughter Eugenia to discuss discharge planning. She stated the patient and her already discussed discharging to [facility]. CM/SS verified with the patient. He is willing at this time. CM/SS contacted Eugenia to make referral. Referral was sent and awaiting acceptance/denial. The patient was recently at [facility] and stayed for two weeks then discharged home. He believes he did pretty well until recently. Eugenia stated that it was taking two people to help get him up and take care of him and sometimes two people were not enough. CM/SS will continue to follow.
[2020-05-27] MEDS ORDERED: cefTRIAXone 1,000 MG/SWFI 10 ML IV PUSH IV SCH ×2 (11:00)
[2020-05-27 12:11] VITALS: BP 158/71
--- NOTE | 2020-05-27 13:14 | Physical Therapy Evaluation ---
PT Evaluation-General Medical Diagnosis Admission Date May 26, 2020 at 11:57 Medical Diagnosis: UTI Onset Date: May 26, 2020 Therapy Diagnosis Therapy Diagnosis: impaired mobility, strength, endurance Precautions Precautions/Isolations: Fall Prevention, Standard Precautions Referral Physician: Katie Reason for Referral: Evaluation/Treatment Medical History Pertinent Medical History: CVA, HTN, Renal Insufficiency Additional Medical History Past Medical History Surgeries: Joint Replacement Cardiac: Chronic Edema/Swelling, Hypertension Neurological: Stroke Reproductive: No Sexually Transmitted Disease: No Genitourinary: Renal Failure Musculoskeletal: Degenerate Disk Disease Reviewed History: Yes Social History Home: Single Level Current Living Status: Spouse Entry Into Home: Ramp Prior Prior Level of Function SCALE: Activities may be completed with or without assistive devices. 8-Eccmquvnod-xpbkvnh completes the activity by him/herself with no assistance from a helper. 5-Set-up or Clean-up Assistance-helper sets up or cleans up; patient completes activity. [place] assists only prior to or following the activity. 4-Supervision or Touching Assistance-helper provides verbal cues and/or touching/steadying and/or contact guard assistance as patient completes activity. Assistance may be provided throughout the activity or intermittently. 3-Partial/Moderate Assistance-helper does LESS THAN HALF the effort. [place] lifts, holds or supports trunk or limbs, but provides less than half the effort. 2-Substantial/Maximal Assistance-helper does MORE THAN HALF the effort. [place] lifts or holds trunk or limbs and provides more than half the effort. 5-Lqoafgvjd-bxqbet does ALL the effort. Patient does none of the effort to complete the activity. Or, the assistance of 2 or more helpers is required for the patient to complete the activity. If activity was not attempted, code reason: 7-Patient Refused. 9-Not Applicable-not attempted and the patient did not perform the activity before the current illness, exacerbation or injury. 10-Not Attempted due to Environmental Limitations-(lack of equipment, weather restraints, etc.). 88-Not Attempted due to Medical Conditions or Safety Concerns. Bed Mobility: 3 Transfers (B,C,W/C): 3 Gait: 3 Indoor Mobility (Ambulation): Needed Some Help Prior Devices Use: Walker PT Evaluation-Current Subjective Patient in bed pre tx, agrees to PT but states he is not getting out of bed at this time. Pt/Family Goals "to go home Objective Patient Orientation: Person, Place, Situation Attachments: Oxygen, [place] Catheter, IV ROM/Strength ROM Lower Extremities WNL Strength Lower Extremities 4-/5 gross BLE Sensory Hearing: Functional Sensation Right Lower Extremit: Impaired Sensation Left Lower Extremity: Impaired Transfers Roll Left to Right (QC): 6 Sit to Lying (QC): 3 Lying to Sitting/Side of Bed(Q: 3 min assist for supine <-> sit, patient sat on the side of the bed for approx 5 min before needing to lay down, patient refuses to stand, no SOB Balance Sitting Static: Normal Sitting Dynamic: Normal Treatment BLE supine exercises x20 (AP, HS) Assessment/Needs Patient needs min assist for supine to sit, refuses standing or ambulation. Rehab Potential: Guarded PT Artificial Limb Maker Goals Senior Living Goals PT Artificial Limb Maker Goals Time Frame: Jun 03, 2020 Roll Left & Right (QC): 6 Sit to Lying (QC): 6 Lying-Sitting on Side/Bed(QC): 6 Sit to Stand (QC): 3 Chair/Pnz-hf-Aoysa Xfer(QC): 3 PT Plan Problem List Problem List: Activity Tolerance, Functional Strength, Safety, Balance, Gait, Transfer, Bed Mobility, ROM Treatment/Plan Treatment Plan: Continue Plan of Care Treatment Plan: Bed Mobility, Education, Functional Activity Marianela, Functional Strength, Gait, Safety, Therapeutic Exercise, Transfers Treatment Duration: Jun 03, 2020 Frequency: 6 times per week Estimated Hrs Per Day: .25 hour per day Patient and/or Family Agrees t: Yes Safety Risks/Education Patient Education: Correct Positioning, Safety Issues Teaching Recipient: Patient Teaching Methods: Demonstration, Discussion Response to Teaching: Reinforcement Needed Discharge Recommendations Plan Patient will perform bed mobility and transfer training, balance and endurance training, functional strengthening, gait training, and education, to improve functional mobility and independence at home. Therapy Discharge Recommendati: 24 Hour Supervision Time/GCodes Time In: 1125 Time Out: 1136 Total Billed Treatment Time: 11 Total Billed Treatment 1 visit NEHEMIAH VASQUEZ PT May 27, 2020 13:14
[2020-05-27] MEDS: LACTOBACILLUS ACIDOPHILUS (PROBIOTIC) CAPSULE PO SCH ×2 (14:13→18:02)
[2020-05-27] MEDS ORDERED: ENOXAPARIN 40 MG/0.4 ML (LOVENOX) SYR SQ SCH (15:00)
--- NOTE | 2020-05-27 15:06 | Occupational Therapy Eval ---
OT Evaluation-General/PLF Medical Diagnosis Admission Date May 26, 2020 at 11:57 Medical Diagnosis: UTI Onset Date: May 26, 2020 Therapy Diagnosis Therapy Diagnosis: Decreased ADL status Precautions Precautions/Isolations: Fall Prevention, Standard Precautions Referral Physician: Katie Referral Reason: Activity Tolerance, Self Care, Evaluation/Treatment, Strengthening/ROM Medical History Pertinent Medical History: CVA, HTN, Renal Insufficiency Additional Medical History CAD, chronic edema, HTN, CVA, DDD, renal failure Current History UTI, COVID negative Reviewed History: Yes Social History Home: Single Level Current Living Status: Spouse Entry Into Home: Ramp ADL-Prior Level of Function SCALE: Activities may be completed with or without assistive devices. 9-Ksjfakxauf-nyitdmz completes the activity by him/herself with no assistance from a helper. 5-Set-up or Clean-up Assistance-helper sets up or cleans up; patient completes activity. Leeper assists only prior to or following the activity. 4-Supervision or Touching Assistance-helper provides verbal cues and/or touching/steadying and/or contact guard assistance as patient completes activity. Assistance may be provided throughout the activity or intermittently. 3-Partial/Moderate Assistance-helper does LESS THAN HALF the effort. Leeper lifts, holds or supports trunk or limbs, but provides less than half the effort. 2-Substantial/Maximal Assistance-helper does MORE THAN HALF the effort. Leeper lifts or holds trunk or limbs and provides more than half the effort. 1-Agmdjlcfv-xgiapd does ALL the effort. Patient does none of the effort to complete the activity. Or, the assistance of 2 or more helpers is required for the patient to complete the activity. If activity was not attempted, code reason: 7-Patient Refused. 9-Not Applicable-not attempted and the patient did not perform the activity b efore the current illness, exacerbation or injury. 10-Not Attempted due to Environmental Limitations-(lack of equipment, weather restraints, etc.). 88-Not Attempted due to Medical Conditions or Safety Concerns. ADL PLOF Comments Pt states was IND prior to IN. Pt states post-IN helped him out. Pt is unsure of what helped him with. Self Care: Needed Some Help Functional Cognition: Unknown DME/Equipment Comments walker OT Current Status Subjective Pt alert in bed. Pt agrees to tx. Pt states he is leaving tomorrow to go to his "daughter's penitentiary." Pt states daughter supervises a NH. Pt denies pain, denies OOB, stating he will fall if he gets up. Pt agrees to EOB. Mental Status/Objective Attachments: Galicia Catheter, SCD's Current Glasses/Contacts: Yes Hearing Aids: No Dentures/Partials: No Upper Extremity ROM WFL BUE Upper Extremity Coordination WFL BUE Upper Extremity Sensation WFL BUE Upper Extremity Strength WFL BUE Edema: R>L LE edema ADL-Treatment Eating (QC): 6 (IND per clinical judgment) Oral Hygiene (QC): 7 Shower/Bathe Self (QC): 7 Upper Body Dressing (QC): 7 Lower Body Dressing (QC): 1 (TD for breif donning while in bed.) On/Off Footwear (QC): 1 (TD) Toileting Hygiene (QC): 1 (TD with Ax2 for cleaning/ rolling in bed.) Other Treatments Pt in bed upon entry. BM smell present. Pt is educated on OT role and purpose. Pt denies OOB. Pt agrees to get cleaned up, though denies having BM. Pt rolls to L side with mod A, max A to reach full roll. Assist requested from nursing technician. Pt requires Ax2 for rolling/ wiping bottom post-BM (small). Upon rolling to R side, full bottom exposed where wounds noted on bottom. Pt's nurse is notified and comes in to examine. Pt completes rolling to back. LE's propped on pillows with pt able to flex hip/ knee with IND, all needs met, call light in reach. Education OT Patient Education: Correct positioning, Modified ADL techniques, Purpose of tx/functional activities, Safety issues, Transfer techniques Teaching Recipient: Patient Teaching Methods: Demonstration, Discussion Response to Teaching: Verbalize Understanding, Return Demonstration, Reinforcement Needed OT Building Rental Superintendent Goals Correction Goals Time Frame: Jun 03, 2020 Eating (QC): 6 Oral Hygiene (QC): 6 Toileting Hygiene (QC): 3 Shower/Bathe Self (QC): 3 Upper Body Dressing (QC): 6 Lower Body Dressing (QC): 2 On/Off Footwear (QC): 2 Additional Goals: 1-Demonstrate ADL Tasks, 2-Verbalize Understanding, 3- ImproveStrength/Marianela 1=Demonstrate adherence to instructed precautions during ADL tasks. 2=Patient will verbalize/demonstrate understanding of assistive devices/gaby fications for ADL. 3=Patient will improve strength/tolerance for activity to enable patient to perform ADL's. OT Education/Plan Problem List/Assessment Assessment: Decreased Activ Tolerance, Dependent Transfers, Edema, Impaired Bed Mobility, Impaired Cognition, Impaired I ADL's, Impaired Self-Care Skills Discharge Recommendations Plan/Recommendations: Continue POC Therapy Discharge Recommendati: 24 Hour Supervision, Post Acute OT Treatment Plan/Plan of Care Treatment,Training & Education: Yes Patient would benefit from OT for education, treatment and training to promote independence in ADL's, mobility, safety and/or upper extremity function for ADL's. Plan of Care: ADL Retraining, Caregiver Training, Functional Mobility, UE Funct Exercise/Act Treatment Duration: Jun 03, 2020 Frequency: 5 times per week Estimated Hrs Per Day: .25 hour per day Agreement: Yes Rehab Potential: Guarded Time/GCodes Start Time: 14:10 Stop Time: 14:32 Total Time Billed (hr/min): 22 Billed Treatment Time 1, ARBEN ZAMORA OTR May 27, 2020 15:06
[2020-05-27] MEDS ORDERED: ZINC OXIDE 16% OINT (BUTT PASTE) 57 GM TUBE TOP PRN (15:30)
[2020-05-27] MEDS ORDERED: LISI10TA2 PO (15:32)
[2020-05-27] MEDS ORDERED: CLOP75TA28 PO (15:32)
[2020-05-27] MEDS ORDERED: PANT40TA52 PO (15:36)
--- NOTE | 2020-05-27 15:36 | NUR ---
I SPOKE WITH THE PATIENT ON THE ROOM PHONE, CALLED HIS GRANDDAUGHTER SHANITA, [facility] TO COMPLETE THIS MED REC. FILL DATES FROM [facility]: 03/02/20 SIMVASTATIN 40MG #45/90 -PATIENT HAD JUST RECENTLY SWITCHED FROM 1/2 TAB TO FULL TAB 04/07/20 ALLOPURINOL 100MG #90/90DS 04/09/20 TAMSULOSIN 0.4MG #180/90DS 04/13/20 HYDRALAZINE 50MG #270/90DS 04/26/20 AGGRENOX #60/30DS FILL DATES FROM [facility]: 05/20/20 PANTOPRAZOLE 40MG #60/20DS 05/20/20 PLAVIX 75MG #30/30DS 05/20/20 LISINOPRIL 10MG #30/30DS
[2020-05-27 16:00] VITALS: BP 153/66
[2020-05-27 20:05] VITALS: BP 152/68
[2020-05-27] MEDS ORDERED: SIMvastatin 40 MG (ZOCOR) TAB PO SCH (21:00)
[2020-05-27] MEDS ORDERED: NON-FORMULARY MEDICATION 1 EA EA (Hydralazine HCl 50 MG) PO SCH (21:00)
[2020-05-27] MEDS: hydrALAZINE (APRESOLINE) 25 MG TAB PO SCH (21:09)
[2020-05-27] MEDS: PANTOPRAZOLE 20 MG TABLET (PROTONIX) PO SCH (21:09)
[2020-05-28] VITALS: BP 155/72
[2020-05-28 04:00] VITALS: BP 143/66
[2020-05-28] MEDS: LACTATED RINGERS 1,000 ML IV SCH (05:45)
[2020-05-28 07:04] LABS: HEMOGLOBIN 8.5 g/dL (13.3-17.7); MEAN PLATELET VOLUME 9.7 fL (9.0-12.2); WHITE BLOOD COUNT 4.5 10^3/uL (4.3-11.0)
[2020-05-28 07:13] LABS: POTASSIUM 3.6 MMOL/L (3.6-5.0)
[2020-05-28 07:15] LABS: CALCIUM 8.2 MG/DL (8.5-10.1)
[2020-05-28 07:19] LABS: CREATININE SERUM 1.64 MG/DL (0.60-1.30)
[2020-05-28 08:00] VITALS: BP 170/75
[2020-05-28] MEDS ORDERED: AMOX-358 PO (08:56)
[2020-05-28] MEDS ORDERED: LACT1CAP7 PO (08:56)
--- NOTE | 2020-05-28 08:59 | Discharge Inst-Skilled Nursing ---
Discharge Inst-Skilled NF Chief Complaint Pt is an 89yoCM with a PMH of CAD s/p recent stent who developed hematuria and presented to the emergency room yesterday. On Arrival he was found to be febrile until he was unaware of this. he was found to have a urinary tract infection. He was tested for COVID and this was negative. His daughter reported the social media content specialist that he was very weak and it took 2 people to get him up. This morning he reports he was feeling better but still week. No complaints. He only question was to ask me a riddle about body parts with 3 letter. Consult/Follow Up/Orders Skilled NF Admit to: [facility] Certification (SNF) I certify that SNF services are required to be given on an inpatient basis because of the above named patient's need for [facility] care on a continuing basis for the conditions(s) for which he/she was receiving inpatient hospital services prior to his/her transfer to the SNF. [facility] Facility Order: Nursing Services, Film Washer-Evaluate & Treat, Physical Therapy-Evaluate & Treat Oxygen Delivery Method: Room Air Discharge Diet: Cardiac Diet Daily Activity as Tolerated: Yes Resuscitation Status: Do Not Resuscitate New & Resume Previous Orders Linda Wilson May 28, 2020 08:56 LINDA WILSON MD May 28, 2020 08:59
[2020-05-28] MEDS ORDERED: ASPIRIN E.C. 81 MG (ECOTRIN) TAB PO SCH (09:00)
[2020-05-28] MEDS ORDERED: NON-FORMULARY MEDICATION 1 EA EA (Folic Acid 0.8 MG) PO SCH (09:00)
[2020-05-28] MEDS ORDERED: NON-FORMULARY MEDICATION 1 EA EA (Cholecalciferol (Vitamin D3) (Vitamin D3) 50 MCG) PO SCH (09:00)
[2020-05-28] MEDS ORDERED: TAMSULOSIN 0.4 MG (FLOMAX) CAP PO SCH (09:00)
[2020-05-28] MEDS ORDERED: DIPYRIDAMOLE/ASA ER CAPSULE (AGGRENOX) PO SCH (09:00)
[2020-05-28] MEDS ORDERED: VITAMIN D3 25 MCG (1,000 UNITS) TABLET PO SCH (09:00)
[2020-05-28] MEDS ORDERED: FOLIC ACID 1 MG TAB PO SCH (09:00)
[2020-05-28] MEDS ORDERED: ALLOPURINOL 100 MG (ZYLOPRIM) TAB PO SCH (09:00)
[2020-05-28] MEDS ORDERED: CLOPIDOGREL 75 MG (PLAVIX) TABLET PO SCH (09:00)
[2020-05-28] MEDS: hydrALAZINE (APRESOLINE) 25 MG TAB PO SCH (09:13)
[2020-05-28] MEDS: PANTOPRAZOLE 20 MG TABLET (PROTONIX) PO SCH (09:13)
[2020-05-28] MEDS: LACTOBACILLUS ACIDOPHILUS (PROBIOTIC) CAPSULE PO SCH (09:14)
[2020-05-28 12:00] VITALS: BP 152/69
--- NOTE | 2020-05-28 12:00 | Discharge Summary ---
Diagnosis/Chief Complaint Date of Admission May 26, 2020 at 11:57 Date of Discharge Discharge Date: May 28, 2020 Admission Diagnosis UTI Primary Care No,Local Physician Discharge Summary Discharge Physical Exam Allergies: Coded Allergies: No Known Drug Allergies (Unverified , 05/02/10) Vitals & I&Os Vital Signs Date Time Temp Pulse Resp B/P (MAP) Pulse Ox O2 Delivery O2 Flow Rate FiO2 05/28/20 12:49 76 05/28/20 12:00 35.7 20 152/69 (96) 96 Room Air General Appearance: No Apparent Distress, WD/WN Neurologic/Psychiatric: Alert, Oriented x3 Hospital Course Pt was admitted to due to severe sepsis due to UTI. He was treated with IV antibiotics and did well. He had previously been recommended SNF placement at last discharge roughly 1 month ago but he declined then. He was agreeable this time and was discharged to [facility] for continue therapy. He is to complete his antibiotics and follow up with his primary care doctor to follow up this hospital stay. Labs (last 24 hrs) Microbiology 05/26/20 Blood Culture - Final, Complete Streptococcus mitis group Staphylococcus epidermidis 05/26/20 Influenza Types A,B Antigen (MARI) - Final, Complete 05/26/20 Urine Culture - Final, Complete Proteus mirabilis Patient resulted labs reviewed. Pending Labs Imaging: Reviewed Imaging Report Discussion & Recommendations Discharge Planning: >30 minutes discharge planning Discharge Home Medications: Active Scripts Active Augmentin 875-125 Tablet (Amoxicillin/Potassium Clav) 1 Each Tablet 1 Each PO BID Acidophilus-Pectin Capsule (Lactobacillus Acidophilus/Pect) 1 Each Capsule 2 Each PO TIDWM Reported Pantoprazole Sodium 40 Mg Tablet.dr 40 Mg PO BID Lisinopril 10 Mg Tablet 10 Mg PO 0900 Clopidogrel (Clopidogrel Bisulfate) 75 Mg Tablet 75 Mg PO DAILY Zocor (Simvastatin) 40 Mg Tablet 40 Mg PO HS Aggrenox 25 mg-200 mg Capsule (Dipyridamole/Aspirin) 1 Ea Cap 1 Cap PO DAILY Folic Acid 0.8 Mg Tablet 0.8 Mg PO DAILY Flomax (Tamsulosin HCl) 0.4 Mg Cap 0.8 Mg PO DAILY TAKES 2 (0.4MG) CAPS Allopurinol 100 Mg Tablet 100 Mg PO DAILY Vitamin D3 (Cholecalciferol (Vitamin D3)) 50 Mcg Capsule 50 Mcg PO DAILY Hydralazine HCl 50 Mg Tablet 50 Mg PO TID Instructions to patient/family Please see electronic discharge instructions given to patient. Clinical Quality Measures DVT/VTE Risk/Contraindication: Risk Factor Score Per Nursin RFS Level Per Nursing on Admit: 4+=Very High LINDA NICHOLSON MD May 28, 2020 12:00
--- NOTE | 2020-05-28 13:00 | NUR ---
REPORT CALLED TO [facility] SAIMA FRAGOSO RN
--- NOTE | 2020-05-28 13:55 | NUR ---
DINESH MARIN discharged to -. FAMILY notified of discharge and report given to . DINESH MARIN belongings sent with PT. Skin dry and intact; no breakdown noted. Vital signs are stable at time of discharge. Condition is stable at time of discharge. Discharge instructions and copies of H&P, discharge summary, physician's order, lab reports, consultation reports, other dictated reports, diagnostic imaging reports, Advance Directive, eMAR, vital signs, intake and output sent with PT. Patient discharged from 421 on at 1355. DINESH MARIN left floor via WC, accompanied by STAFF. DINESH MARIN and family/DPOA notified and verbalize understanding of discharge to -.
--- NOTE | 2020-05-28 16:07 | NUR ---
CM/SS finalized plan. Plan: The patient will return to [facility] today 05/28 Skilled. upper leather cutter time for 1:00 p.m. [facility]: CM/SS contacted Eugenia from [facility] to set up plans for discharge. CM/SS faxed finalized discharge for a skilled stay. The patient did not have 3 midnights but due to Covid, bed availability, and the need for skilled therapies the patient went skilled. No further needs.
== END 2020-05-28 13:55 | DRG 872 ==
LOC: EDUNIT# 09:53 → ER 09:55 → 4TH 11:57 → EDLOC 11:57
PROVIDERS: ADMIT Family Medicine; ATTEND Family Medicine
DX: A41.9 Sepsis, unspecified organism (principal); N39.0 Urinary tract infection, site not specified; N17.9 Acute kidney failure, unspecified; R65.20 Severe sepsis without septic shock; I25.10 Atherosclerotic heart disease of native coronary artery without angina pectoris; Z20.828 Contact with and (suspected) exposure to other viral communicable diseases; N18.30 Chronic kidney disease, stage 3 unspecified; I12.9 Hypertensive chronic kidney disease with stage 1 through stage 4 chronic kidney disease, or unspecified chronic kidney disease; R53.1 Weakness; Z95.5 Presence of coronary angioplasty implant and graft
CPT/HCPCS: 36415; 51702; 71045; 80048; 80053; 81000; 83605; 84145; 85025; 85027; 85379; 85610; 85730; 86141; 87040; 87077; 87088; 87186; 87635; 87804

== ENCOUNTER → 2020-06-04 | Outpatient (CLI) | payer MEDICARE ==
[~2020-06-04] MED LIST changes: +AMOX-358 PO; +LACT1CAP7 PO; +PANT20TA2 PO; +PANT40TA52 PO; +SIMV40TA PO
--- NOTE | 2020-06-04 14:05 | Diagnostic Imaging Report ---
PROCEDURE: CT abdomen and pelvis without contrast. TECHNIQUE: Multiple contiguous axial images were obtained through the abdomen and pelvis without the use of intravenous contrast. Auto Exposure Controls were utilized during the CT exam to meet ALARA standards for radiation dose reduction. INDICATION: Hematuria for two weeks. COMPARISON: Correlation is made with prior CT from 10/23/2008. FINDINGS: Imaging through the lung bases demonstrates lungs to be clear. There are coronary arterial calcifications present. No discrete liver mass is identified. High density material within the gallbladder is noted, perhaps owing to sludge. No biliary ductal dilatation is seen. The pancreas and spleen are unremarkable. No adrenal mass is detected. The right kidney is atrophic. There is nonobstructing calculus in lower pole calyx of the right kidney measuring 8 mm. There is a small stone in the distal right ureter as well measuring 3 mm just above the UVJ. There is mild hydroureteronephrosis present. Left kidney does contain a staghorn calculi involving the upper mid and lower third infundibula and calyces as well as the renal pelvis. Left ureter is dilated but no definite ureteral calculi are seen. No bladder calculi are detected. There are inflammatory changes noted along the anterior surface of the bladder near the dome. There is a small amount of gas at this location as well which is indeterminate, as no definite bowel loop is identified in this region. This area measures approximately 6.1 x 2.7 cm in size. An inflammatory process such as early abscess formation cannot be excluded. Prostate is enlarged. Aorta is heavily calcified but non-aneurysmal. No central, retroperitoneal or mesenteric lymphadenopathy is identified. The small and large bowel loops are normal caliber. No obstruction is seen. There is diverticulosis of the sigmoid but no evidence of acute diverticulitis. IMPRESSION: 1. High density material within the gallbladder, perhaps representing sludge. Gallbladder ultrasound may be useful for further evaluation. 2. Atrophic right kidney with nonobstructing calculi. There is also small calculus in the distal right ureter producing mild hydroureteronephrosis. 3. 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 4. Prostatomegaly. 5. Abnormal inflammatory changes involving the anterior aspect of the bladder dome with associated small amount of extraluminal gas. Exact etiology is indeterminate but this is likely on an infectious/inflammatory basis and early abscess formation cannot be entirely excluded. Dictated by: Dictated on workstation # [id number]
== END ==
LOC: RAD FS 12:26
PROVIDERS: ATTEND Urology
DX: N13.2 Hydronephrosis with renal and ureteral calculous obstruction (principal); N30.81 Other cystitis with hematuria; N40.0 Benign prostatic hyperplasia without lower urinary tract symptoms; N26.1 Atrophy of kidney (terminal); K82.8 Other specified diseases of gallbladder
CPT/HCPCS: 74176

== ENCOUNTER 2020-06-17 10:36 | Emergency (ER) | payer MEDICARE ==
[~2020-06-17] VITALS: Ht 175.2 cm; Wt 107.9 kg
--- NOTE | 2020-06-17 10:45 | ED General ---
General Stated Complaint: CLOUDY URINE; AMS; LOW BP History of Present Illness Date Seen by Provider: Jun 17, 2020 Time Seen by Provider: 10:50 Initial Comments 89-year-old male sent in for evaluation. Patient was being seen by physical therapy they were concerned that he was not his normal self this morning. Patient has recently had a cystoscopy with Galicia placement on 1020. He has sediment in his urine. They're concerned about a possible urinary tract infection. Patient is currently on Bactrim. They were concerned about some confusion but patient states that he feels fine. There is also some concern about low blood pressure but his blood pressure is 131/45 here in the emergency room. Patient reports our reasoning no something is wrong is that they sent him here. [facility] reports decreased appetite but patient denies this. Allergies and Home Medications Allergies Coded Allergies: No Known Drug Allergies (Unverified , 05/02/10) Home Medications Allopurinol 100 Mg Tablet, 100 MG PO DAILY, (Reported) Amoxicillin/Potassium Clav 1 Each Tablet, 1 EACH PO BID Prescribed by: LINDA NICHOLSON on 05/28/20 1158 Cholecalciferol (Vitamin D3) 50 Mcg Capsule, 50 MCG PO DAILY, (Reported) Clopidogrel Bisulfate 75 Mg Tablet, 75 MG PO DAILY, (Reported) Dipyridamole/Aspirin 1 Ea Cap, 1 CAP PO DAILY, (Reported) Folic Acid 0.8 Mg Tablet, 0.8 MG PO DAILY, (Reported) Hydralazine HCl 50 Mg Tablet, 50 MG PO TID, (Reported) Lactobacillus Acidophilus/Pect 1 Each Capsule, 2 EACH PO TIDWM Prescribed by: LINDA NICHOLSON on 05/28/20 1158 Lisinopril 10 Mg Tablet, 10 MG PO 0900, (Reported) Pantoprazole Sodium 40 Mg Tablet.dr, 40 MG PO BID, (Reported) Simvastatin 40 Mg Tablet, 40 MG PO HS, (Reported) Tamsulosin HCl 0.4 Mg Cap, 0.8 MG PO DAILY, (Reported) TAKES 2 (0.4MG) CAPS Patient Home Medication List Home Medication List Reviewed: Yes Review of Systems Review of Systems Constitutional: No chills, No fever EENTM: no symptoms reported Respiratory: no symptoms reported Cardiovascular: no symptoms reported Gastrointestinal: no symptoms reported Genitourinary: see HPI Musculoskeletal: no symptoms reported Skin: no symptoms reported Psychiatric/Neurological: See HPI Past Vjauysl-Uzjzsz-Vwjjnm Hx Past Med/Social Hx: Reviewed Nursing Past Med/Soc Hx Patient Social History Recent Foreign Travel: No Contact w/Someone Who Travel: No Recent Hopitalizations: Yes Immunizations Up To Date Tetanus Booster (TDap): Unknown PED Vaccines UTD: Yes Date of Pneumonia Vaccine: May 06, 2015 Date of Influenza Vaccine: Apr 02, 2020 Past Medical History Surgeries: Yes (ONE KNEE REPLACED 1998 & THE OTHER KNEE IN 2001) Joint Replacement Respiratory: No Cardiac: Yes Chronic Edema/Swelling, Hypertension Neurological: Yes Stroke Reproductive Disorders: No Sexually Transmitted Disease: No Genitourinary: Yes Renal Failure Gastrointestinal: No Musculoskeletal: Yes Degenerate Disk Disease Endocrine: No HEENT: No Cancer: No Psychosocial: No Integumentary: No Blood Disorders: No Physical Exam Vital Signs Capillary Refill : Height, Weight, BMI Height: '" Weight: lbs. oz. kg; 36.17 BMI Method:Stated General Appearance: No Apparent Distress HEENT: PERRL/EOMI Respiratory: Lungs Clear, Normal Breath Sounds Cardiovascular: Regular Rate, Rhythm, Other (bilateral lower extremity edema) Gastrointestinal: Non Tender, Soft Genital/Rectal: Other (Galicia catheter in place with cloudy urine) Extremity: Pedal Edema Neurologic/Psychiatric: Alert, No Motor/Sensory Deficits, Normal Mood/Affect, closing specialist II-XII Norm as Tested Skin: Normal Color, Warm/Dry Focused Exam Lactate Level 06/17/20 11:10: Lactic Acid Level 0.84 Lactic Acid Level Laboratory Tests Test 06/17/20 11:10 Lactic Acid Level 0.84 MMOL/L (0.50-2.00) Progress/Results/Core Measures Suspected Sepsis SIRS Temperature: Pulse: Respiratory Rate: Laboratory Tests 06/17/20 11:10: White Blood Count 3.9L Blood Pressure / Mean: 06/17/20 11:10: Lactic Acid Level 0.84 Laboratory Tests 06/17/20 11:10: Creatinine 2.77H, Platelet Count 294, Total Bilirubin < 0.2 Results/Orders Lab Results Laboratory Tests Test 06/17/20 10:55 06/17/20 11:10 Range/Units Urine Color YELLOW Urine Clarity CLOUDY Urine pH 7.5 5-9 Urine Specific [place] 1.020 1.016-1.022 Urine Protein 2+ H NEGATIVE Urine Glucose (UA) NEGATIVE NEGATIVE Urine Ketones NEGATIVE NEGATIVE Urine Nitrite POSITIVE H NEGATIVE Urine Bilirubin NEGATIVE NEGATIVE Urine Urobilinogen 0.2 < = 1.0 MG/DL Urine Leukocyte Esterase 3+ H NEGATIVE Urine RBC (Auto) 3+ H NEGATIVE Urine RBC 50-100 H /HPF Urine WBC 50-100 H /HPF Urine Squamous Epithelial Cells RARE /HPF Urine Crystals NONE /LPF Urine Bacteria FEW H /HPF Urine Casts NONE /LPF Urine Mucus NEGATIVE /LPF Urine Culture Indicated YES White Blood Count 3.9 L 4.3-11.0 10^3/uL Red Blood Count 2.86 L 4.35-5.85 10^6/uL Hemoglobin 8.3 L 13.3-17.7 G/DL Hematocrit 26 L 40-54 % Mean Corpuscular Volume 91 80-99 FL Mean Corpuscular Hemoglobin 29 25-34 PG Mean Corpuscular Hemoglobin Concent 32 32-36 G/DL Red Cell Distribution Width 14.4 10.0-14.5 % Platelet Count 294 130-400 10^3/uL Mean Platelet Volume 9.2 7.4-10.4 FL Immature Granulocyte % (Auto) 1 % Neutrophils (%) (Auto) 56 42-75 % Lymphocytes (%) (Auto) 27 12-44 % Monocytes (%) (Auto) 12 0-12 % Eosinophils (%) (Auto) 4 0-10 % Basophils (%) (Auto) 0 0-10 % Neutrophils # (Auto) 2.2 1.8-7.8 X 10^3 Lymphocytes # (Auto) 1.0 1.0-4.0 X 10^3 Monocytes # (Auto) 0.5 0.0-1.0 X 10^3 Eosinophils # (Auto) 0.1 0.0-0.3 10^3/uL Basophils # (Auto) 0.0 0.0-0.1 10^3/uL Immature Granulocyte # (Auto) 0.0 0.0-0.1 10^3/uL Sodium Level 136 135-145 MMOL/L Potassium Level 4.5 3.6-5.0 MMOL/L Chloride Level 107 98-107 MMOL/L Carbon Dioxide Level 19 L 21-32 MMOL/L Anion Gap 10 5-14 MMOL/L Blood Urea Nitrogen 38 H 7-18 MG/DL Creatinine 2.77 H 0.60-1.30 MG/DL Estimat Glomerular Filtration Rate 22 BUN/Creatinine Ratio 14 Glucose Level 104 70-105 MG/DL Lactic Acid Level 0.84 0.50-2.00 MMOL/L Calcium Level 9.5 8.5-10.1 MG/DL Corrected Calcium 10.4 H 8.5-10.1 MG/DL Total Bilirubin < 0.2 0.1-1.0 MG/DL Aspartate Amino Transf (AST/SGOT) 13 5-34 U/L Alanine Aminotransferase (ALT/SGPT) 13 0-55 U/L Alkaline Phosphatase 78 40-136 U/L Total Protein 6.2 L 6.4-8.2 GM/DL Albumin 2.9 L 3.2-4.5 GM/DL My Orders Orders - KT SIFUENTES DO Cbc With Automated Diff (06/17/20 10:56) Comprehensive Metabolic Panel (06/17/20 10:56) Ua Culture If Indicated (06/17/20 10:56) Blood Culture (06/17/20 10:56) Lactic Acid Analyzer (06/17/20 10:56) Urine Culture (06/17/20 10:55) Ceftriaxone For Iv Use (Rocephin For I (06/17/20 11:43) Vital Signs/I&O Capillary Refill : Progress Note : Time: 12:13 Progress Note Patient with significant urinary tract infection. He is currently on Bactrim. I will have him continue the Bactrim however I'm when add Keflex. Cultures and sensitivities are pending. He was given a 1 g or Rocephin here in the ER. Patient was discharged back home and should follow-up with Dr. Lock for further management Departure Impression Primary Impression: Urinary tract infection Qualified Codes: T83.511A - Infection and inflammatory reaction due to indwelling urethral catheter, initial encounter; N39.0 - Urinary tract infection, site not specified Disposition: 01 HOME, SELF-CARE Condition: Stable Departure-Patient Inst. Referrals: PATRIC REVELES MD (PCP/Family) Primary Care Physician Patient Instructions: Urinary Tract Infection, Adult ED Add. Discharge Instructions: Follow-up with Dr. Lock for continuation of care and recheck in today symptoms Scripts Cephalexin (Cephalexin) 500 Mg Tablet 500 MG PO QID, #20 TAB 0 Refills Prov: KT SIFUENTES DO 06/17/20 Copy Copies To 1: ELA LOCK MD, TREVOR L DO Jun 17, 2020 10:45
--- NOTE | 2020-06-17 10:50 | NUR ---
Urine obtained from Indwelling catheter via catheter released from gravity drainage bag and urine dripped directly to sterile specimen cup. Large sediment and cloudy urine was patent in catheter on arrival. Pt had a cysto 06/10/[address] Spencer. [facility] staff placed a catheter on Monday06/15/20. 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 Pt had been wearing a a brief and using a urinal.
[2020-06-17 11:19] LABS: COLOR,URINE YELLOW
[2020-06-17 11:20] LABS: BACTERIA,URINE FEW /HPF; BILIRUBIN,URINE NEGATIVE (NEGATIVE); CLARITY,URINE CLOUDY; GLUCOSE, URINE (UA) NEGATIVE (NEGATIVE); KETONES,URINE NEGATIVE (NEGATIVE); LEUKOCYTE ESTERASE ,URINE 3+ (NEGATIVE); NITRITE,URINE POSITIVE (NEGATIVE); PH,URINE 7.5 (5-9); PROTEIN,URINE 2+ (NEGATIVE); RBC,URINE 50-100 /HPF; SQUAMOUS EPITHELIAL CELL,UR RARE /HPF; WBC,URINE 50-100 /HPF
[2020-06-17 11:41] LABS: BASOPHILS % (AUTO) 0 % (0-10); EOSINOPHILS % (AUTO) 4 % (0-10); HEMATOCRIT 26 % (40-54); HEMOGLOBIN 8.3 G/DL (13.3-17.7); LYMPHOCYTES % (AUTO) 27 % (12-44); MEAN CORPUSCULAR HEMOGLOBIN 29 PG (25-34); MEAN CORPUSCULAR HGB CONC 32 G/DL (32-36); MEAN CORPUSCULAR VOLUME 91 FL (80-99); MEAN PLATELET VOLUME 9.2 FL (7.4-10.4); MONOCYTES % (AUTO) 12 % (0-12); NEUTROPHILS % (AUTO) 56 % (42-75); PLATELET COUNT 294 10^3/uL (130-400); WHITE BLOOD COUNT 3.9 10^3/uL (4.3-11.0)
[2020-06-17 11:42] LABS: EOSINOPHILS # (AUTO) 0.1 10^3/uL (0.0-0.3); MONOCYTES # (AUTO) 0.5 X 10^3 (0.0-1.0); NEUTROPHILS # (AUTO) 2.2 X 10^3 (1.8-7.8)
[2020-06-17] MEDS ORDERED: cefTRIAXone FOR IV USE 1,000 MG in WATER (STERILE) FOR INJECTION 10 ML IV STA (11:43)
[2020-06-17 12:01] LABS: SODIUM 136 MMOL/L (135-145)
[2020-06-17 12:02] LABS: ALANINE AMINOTRANSFERASE 13 U/L (0-55); ALBUMIN 2.9 GM/DL (3.2-4.5); ALKALINE PHOSPHATASE 78 U/L (40-136); BILIRUBIN,TOTAL < 0.2 MG/DL (0.1-1.0); BUN/CREATININE RATIO 14; CALCIUM 9.5 MG/DL (8.5-10.1); CARBON DIOXIDE 19 MMOL/L (21-32); CHLORIDE 107 MMOL/L (98-107); CREATININE SERUM 2.77 MG/DL (0.60-1.30); GFR ESTIMATED 22; GLUCOSE 104 MG/DL (70-105); POTASSIUM 4.5 MMOL/L (3.6-5.0); TOTAL PROTEIN 6.2 GM/DL (6.4-8.2)
[2020-06-17] MEDS ORDERED: CEPH500T PO (12:16)
[2020-06-17 12:45] VITALS: BP 142/47
== END 2020-06-17 12:45 | disposition home or self-care (01) ==
LOC: EDUNIT# 10:36 → ER FS 10:39
DX: N39.0 Urinary tract infection, site not specified (principal); I10 Essential (primary) hypertension
CPT/HCPCS: 36415; 80053; 81000; 83605; 85025; 87040; 87077; 87088